=== PATIENT | male | born 1945 | race Caucasian/White ===

== ENCOUNTER 2017-11-23 07:25 | Emergency (ER) | payer OTHER ==
[~2017-11-23] VITALS: Ht 180.3 cm; Wt 81.2 kg
[2017-11-23 07:33] VITALS: TEMP 36.9; Ht 180.3 cm; Wt 81.2 kg
--- NOTE | 2017-11-23 08:10 | EMERGENCY ROOM VISIT NOTE ---
History Report prepared by Scar: Tristan Taveras Under the Supervision of: Dr. Dima Cortez D.O. First contact with patient: 07:47 Chief Complaint: ABDOMINAL PAIN Stated Complaint: LEFT SIDE BUMP - LEG Nursing Triage Summary: pt reports bump in left abd for 1 month. hurts when goes to bathroom. denies pain now"but when bump comes out hurts" pt reports he is not not sure hernia is History of Present Illness The patient is a 72 year old male who presents to the Emergency Room with complaints of intermittent mild abdominal pain that has been occurring for about 1-2 months. He is currently not in any pain at this time. The patient states that he has had a bulge to his left groin area that reduces whenever he pushes on it. After occurring this morning, he pushed on the area making his symptoms resolve. He denies any fevers, nausea, vomiting, back pain, abdominal pain, changes in her bowels, and abnormal urinary symptoms. Source of History: patient Onset: 1-2 months Position: abdomen (left groin) Symptom Intensity: mild Quality: ache Timing: intermittent, resolved Associated Symptoms: No fevers, No nausea, No vomiting, No abdominal pain, No back pain, No melena, No hematochezia, No diarrhea, No urinary symptoms Review of Systems See HPI for pertinent positives & negatives. A total of 10 systems reviewed and were otherwise negative. Past Medical & Surgical Medical Problems: (1) No Known Active Medical Problems Family History Omitted secondary to the patient's age. Social History Smoking Status: Never Smoker Smokeless Tobacco Use: No Drug Use: none Occupation Status: retired Current/Historical Medications No Active Prescriptions or Reported Meds Allergies Coded Allergies: No Known Allergies (Unverified , 11/23/17) Physical Exam Vital Signs Date Time Temp Pulse Resp B/P (MAP) Pulse Ox O2 Delivery O2 Flow Rate FiO2 11/23/17 08:19 90 16 185/88 96 11/23/17 07:33 36.9 87 18 197/111 96 Room Air Physical Exam CONSTITUTIONAL/VITAL SIGNS: Reviewed / noted above. GENERAL: Non-toxic in appearance. INTEGUMENTARY: Warm, dry, and [place]. HEAD: Normocephalic. EYES: without scleral icterus or trauma. ENT/OROPHARYNX: clear and moist. LYMPHADENOPATHY/NECK: Is supple without lymphadenopathy or meningismus. RESPIRATORY: Lungs clear and equal. CARDIOVASCULAR: Regular rate and rhythm. GI/ABDOMEN: Soft and nontender. No palpable hernias at this time. No organomegaly or pulsatile mass. No rebound or guarding. Normal bowel sounds. EXTREMITIES: Warm and well perfused. BACK: No CVA tenderness. NEUROLOGICAL: Intact without focal deficits. PSYCHIATRIC: normal affect. MUSCULOSKELETAL: Normally developed with good muscle tone. Medical Decision & Procedures ED Course 0747: Previous medical records were reviewed. The patient was evaluated in room A10. A complete history and physical examination was performed. Medical Decision Differential considered: pancreatitis, hepatitis, or acute cholecystitis, AAA, UTI, pyelonephritis, kidney stones, appendicitis, diverticulitis, shingles, bowel obstruction mesenteric ischemia, intussusception, hernia, testicular torsion. This is a 72-year-old male who presents to the emergency room with a chief complaint of intermittent swelling in the left groin area over the past month and a half to 2 months. The patient states that it occurred this morning and he was able to push it back in. He denies any complaints at this time. His exam was unremarkable for acute inguinal hernia. His clinical history is consistent with that of an intermittent reducible left inguinal hernia. The patient was referred to general surgery for further evaluation of this. He was told to return should he have any additional acute symptoms that do not resolve with reduction at home. Medication Reconcilliation Current Medication List: was personally reviewed by me Blood Pressure Screening Patient's blood pressure: Elevated blood pressure Blood pressure disposition: Referred to PCP Impression Primary Impression: Left inguinal hernia Scribe Attestation The scribe's documentation has been prepared under my direction and personally reviewed by me in its entirety. I confirm that the note above accurately reflects all work, treatment, procedures, and medical decision making performed by me. Departure Information Dispostion Home / Self-Care Prescriptions No Active Prescriptions or Reported Meds Referrals No Doctor, Assigned (PCP) Glendy Nguyễn MD Forms Call Back Authorization, HOME CARE DOCUMENTATION FORM, IMPORTANT VISIT INFORMATION Patient Instructions ED Hernia Inguinal, My [facility] Additional Instructions Call Dr. Nguyễn, surgeon, to get checked for inguinal hernia repair. Return for continuous pain, fevers or any other concerns.
[2017-11-23 08:19] VITALS: BP 185/88; PULSE 90; O2SAT 96
== END 2017-11-23 08:26 | disposition home or self-care (01) ==
LOC: C.EDB 07:27 → C.EDA 08:26
DX: K40.90 Unilateral inguinal hernia, without obstruction or gangrene, not specified as recurrent (principal)

== ENCOUNTER 2017-12-09 21:46 | Emergency (ER) | payer OTHER ==
[~2017-12-09] VITALS: Ht 182.9 cm; Wt 79.7 kg
[2017-12-09 21:51] VITALS: Ht 182.9 cm; Wt 79.7 kg
[2017-12-09] MEDS ORDERED: SODIUM CHLORIDE 0.9% 1000ML 1,000 ML IV STA (23:33)
--- NOTE | 2017-12-09 23:42 | EMERGENCY ROOM VISIT NOTE ---
History Report prepared by Scar: Tristan Taveras Under the Supervision of: Dr. Temi Jovel D.O. First contact with patient: 23:07 Chief Complaint: OTHER COMPLAINT Stated Complaint: HERNIA History of Present Illness The patient is a 72 year old male who presents to the Emergency Room with complaints of worsening sharp left suprapubic abdominal pain that occurred two days ago. He rates his pain a 9/10 in severity. He has a past medical history of an inguinal hernia in this location for the past two months. He has a followup appointment with Dr. Nguyễn on December 24 of this year. The patient's pain has been present for about 2 months when he was diagnosed with this hernia. However, over the past two days he has noticed that his pain is exacerbated with standing, exertion, and coughing. He is also experiencing nausea secondary to his pain. He denies any fevers, sore throat, chest pain, shortness of breath, vomiting, testicular pain, trouble with his bowels, or abnormal urinary symptoms. He notes that he had an upper respiratory infection two weeks ago. He was treated as an outpatient with antibiotics and states that he feels better in that regard. His notes that the patient has been having some pain with moving his bowels, but she believes that it is because of his hemorrhoid history. Source of History: patient Onset: 2 days ago Position: abdomen (left suprapubic) Symptom Intensity: 9/10 Quality: sharp Timing: worsening Modifying Factors (Worsening): exertion, other (Standing, and coughing) Associated Symptoms: + nausea, No fevers, No chills, No chest pain, No SOB, No vomiting, No melena, No hematochezia, No diarrhea, No urinary symptoms Review of Systems See HPI for pertinent positives & negatives. A total of 10 systems reviewed and were otherwise negative. Past Medical & Surgical Medical Problems: (1) No Known Active Medical Problems Family History Omitted secondary to the patient's age. Social History Smoking Status: Never Smoker Smokeless Tobacco Use: No Drug Use: none Marital Status: Housing Status: lives with significant other Occupation Status: retired Current/Historical Medications Scheduled Dicyclomine Hcl (Bentyl), 1 CAP PO TID Allergies Coded Allergies: No Known Allergies (Unverified , 11/23/17) Physical Exam Vital Signs Date Time Temp Pulse Resp B/P (MAP) Pulse Ox O2 Delivery O2 Flow Rate FiO2 12/10/17 04:56 64 18 140/78 96 12/10/17 03:52 37.6 83 16 161/93 96 Room Air 12/10/17 02:17 81 16 156/91 96 Room Air 12/10/17 01:09 78 18 163/95 95 Room Air 12/09/17 23:46 77 16 169/103 96 Room Air 12/09/17 21:51 36.7 85 18 171/109 96 Room Air Physical Exam GENERAL: alert, well appearing, well nourished, no distress, non-toxic EYE EXAM: normal conjunctiva, PERRL and EOM's grossly intact OROPHARYNX: no exudate, no erythema, lips, buccal mucosa, and tongue normal and mucous membranes are moist NECK: supple, no nuchal rigidity, no adenopathy, non-tender LUNGS: Clear to auscultation. Normal chest wall mechanics HEART: no murmurs, S1 normal and S2 normal ABDOMEN: abdomen soft, mild tenderness to the left inguinal area, normo-active bowel sounds, no masses, no rebound or guarding. No obvious hernia to the left inguinal area when supine. When standing, hernia like mass noted along the left suprapubic and inguinal region. : Circumcised. Bilaterally descended testicles. No testicular pain with palpation. No obvious hernia into the scrotum. BACK: Back is symmetrical on inspection and there is no deformity, no midline tenderness, no CVA tenderness. SKIN: no rashes and no bruising UPPER EXTREMITIES: upper extremities are grossly normal. LOWER EXTREMITIES: No pitting edema. NEURO EXAM: Normal sensorium, cranial nerves II-XII grossly intact, normal speech, no gross weakness of arms, no gross weakness of legs. Medical Decision & Procedures ER Provider Diagnostic Interpretation: Radiology results have been interpreted by the radiologist and reviewed by me. CT ABDOMEN & PELVIS With Contrast: Small fat-containing left inguinal hernia. No bowel involvement. No free air, free fluid. No bowel obstruction. Normal appendix. Right kidney is absent. Left renal low-density lesion, no hydronephrosis. 3 cm cystic structure in the right retroperitoneum just anterior to the right psoas muscle. Consider. Collection/seroma if there has been right nephrectomy, enteric duplication cyst, other lesion. Low-density lesions in the liver. There are 2 large lesions, approximately 7-8 centimeters. Other adjacent small subcentimeter lesion. Correlate with priors if available or consider follow-up to confirm benign cyst versus other lesion. Gallstone within otherwise normal-appearing gallbladder. Mild bibasilar atelectasis or airspace disease. Greater in the left lung base Radiologist: hBavesh Elizabeth M.D. Laboratory Results 12/09/17 22:37 Red Blood Count 4.94, Mean Corpuscular Volume 89.1, Mean Corpuscular Hemoglobin 30.4, Mean Corpuscular Hemoglobin Concent 34.1, Mean Platelet Volume 8.7, Neutrophils (%) (Auto) 74.5, Lymphocytes (%) (Auto) 10.7, Monocytes (%) (Auto) 14.6, Eosinophils (%) (Auto) 0.2, Basophils (%) (Auto) 0.0, Neutrophils # (Auto ) 3.27, Lymphocytes # (Auto) 0.47, Monocytes # (Auto) 0.64, Eosinophils # (Auto ) 0.01, Basophils # (Auto) 0.00 12/09/17 22:37 Test 12/09/17 22:37 12/09/17 23:51 White Blood Count 4.39 K/uL (4.8-10.8) Red Blood Count 4.94 M/uL (4.7-6.1) Hemoglobin 15.0 g/dL (14.0-18.0) Hematocrit 44.0 % (42-52) Mean Corpuscular Volume 89.1 fL (80-100) Mean Corpuscular Hemoglobin 30.4 pg (25-34) Mean Corpuscular Hemoglobin Concent 34.1 g/dl (32-36) Platelet Count 108 K/uL (130-400) Mean Platelet Volume 8.7 fL (7.4-10.4) Neutrophils (%) (Auto) 74.5 % Lymphocytes (%) (Auto) 10.7 % Monocytes (%) (Auto) 14.6 % Eosinophils (%) (Auto) 0.2 % Basophils (%) (Auto) 0.0 % Neutrophils # (Auto) 3.27 K/uL (1.4-6.5) Lymphocytes # (Auto) 0.47 K/uL (1.2-3.4) Monocytes # (Auto) 0.64 K/uL (0.11-0.59) Eosinophils # (Auto) 0.01 K/uL (0-0.5) Basophils # (Auto) 0.00 K/uL (0-0.2) RDW Standard Deviation 41.4 fL (36.4-46.3) RDW Coefficient of Variation 12.7 % (11.5-14.5) Immature Granulocyte % (Auto) 0.0 % Immature Granulocyte # (Auto) 0.00 K/uL (0.00-0.02) Prothrombin Time 11.0 SECONDS (9.0-12.0) Prothromb Time International Ratio 1.0 (0.9-1.1) Anion Gap 7.0 mmol/L (3-11) Est Creatinine Clear Calc Drug Dose 73.6 ml/min Estimated GFR () 86.3 Estimated GFR (Non- 74.5 BUN/Creatinine Ratio 15.2 (10-20) Calcium Level 7.9 mg/dl (8.5-10.1) Total Bilirubin 1.0 mg/dl (0.2-1) Aspartate Amino Transf (AST/SGOT) 21 U/L (15-37) Alanine Aminotransferase (ALT/SGPT) 25 U/L (12-78) Alkaline Phosphatase 61 U/L (45-117) Total Protein 6.7 gm/dl (6.4-8.2) Albumin 3.1 gm/dl (3.4-5.0) Globulin 3.6 gm/dl (2.5-4.0) Albumin/Globulin Ratio 0.9 (0.9-2) Lipase 166 U/L (73-393) Bedside Lactic Acid Venous 0.77 mmol/L (0.90-1.70) Laboratory results per my review. Medications Administered Medications (Trade) Dose Ordered Sig/Xander Route Start Time Stop Time Status Last Admin Dose Admin Sodium Chloride 1,000 ml @ 250 mls/hr Q4H STAT IV 12/09/17 23:33 12/10/17 03:32 DC 12/09/17 23:50 250 MLS/HR Acetaminophen (Tylenol Tab) 650 mg NOW STAT PO 12/10/17 03:41 12/10/17 03:42 DC 12/10/17 03:50 650 MG Dicyclomine HCl (Bentyl Cap) 10 mg NOW ONCE PO 12/10/17 03:45 12/10/17 03:46 DC 12/10/17 03:50 10 MG ED Course 2307: The patient was evaluated in room B3. A complete history and physical exam was performed. 2333: Ordered Sodium Chloride 1000 ml @ 250 mls/hr IV 0341: Ordered Tylenol Tab 650 mg PO 0345: Ordered Bentyl Cap 10 mg PO 0424: The patient states that he would like emergency surgery to fix his hernia. However, I do not feel that this is necessary at this time. He will be discharged with a plan to follow up with Dr. Nguyễn. 0445: Upon reevaluation, the patient is feeling better. I discussed the findings and the treatment plan with the patient. He verbalizes agreement and understanding. He was discharged home. Medical Decision Differential diagnosis: Etiologies such as appendicitis, diverticulitis, PUD, biliary pathology, UTI, pancreatitis, obstruction, mesenteric ischemia, aortic pathology, infections, inflammatory bowel disease, renal colic, as well as others were entertained. Pt well appearing despite complaints which have been going on for months. Pt already has scheduled appt with general surgery. VS stable throughout. No evidence of strangulation/incarceration, no evidence of other acute GI pathology. No evidence of Gu pathology. Pt did not provide a urine specimen but had no urinary complaints. Pt ambulatory here and very anxious about enlarged area that appears with position change and walking. I assured him this was not a surgical emergency and that he should keep his appointment with the surgeon. Pt tolerated po while in the er. I do not suspect occult infectious etiology. Discussed sx to watch/return for, he and family verbalized understanding and were agreeable with plan. Medication Reconcilliation Current Medication List: was personally reviewed by me Blood Pressure Screening Patient's blood pressure: Elevated blood pressure Blood pressure disposition: Elevated BP felt to be situational Impression Primary Impression: Left inguinal hernia Additional Impression: Hypokalemia Scribe Attestation The scribe's documentation has been prepared under my direction and personally reviewed by me in its entirety. I confirm that the note above accurately reflects all work, treatment, procedures, and medical decision making performed by me. Departure Information Dispostion Home / Self-Care Prescriptions Dicyclomine Hcl (BENTYL) 10 Mg Cap 1 CAP PO TID, #15 CAP 1 Refill Prov: Temi Jovel, DO 12/10/17 Referrals No Doctor, Assigned (PCP) Forms HOME CARE DOCUMENTATION FORM, IMPORTANT VISIT INFORMATION, WORK / SCHOOL INSTRUCTIONS Patient Instructions My [facility] Additional Instructions Please keep your appointment with Dr. Nguyễn, or call the office and see if there is an earlier appointment. You may use Tylenol as needed for pain, or the additional medication as written. Please continue to monitor symptoms for any changes. If you have any worsening pain, feel the area of the hernia is getting larger, noticed a change in your bowel movements, have difficulty urinating or noticed blood in your urine, develop fevers or chills, or you have any other new or concerning symptoms, please return to the emergency room. Problem Qualifiers
[2017-12-10 00:01] LABS: EOS % 0.2 %; EOS ABS # 0.01 K/uL (0-0.5); LYMPH % 10.7 %; LYMPH ABS # 0.47 K/uL (1.2-3.4); MEAN CELL VOLUME 89.1 fL (80-100); MEAN CORPUSCULAR HEMOGLOBIN 30.4 pg (25-34); MEAN CORPUSCULAR HGB CONC 34.1 g/dl (32-36); MEAN PLATELET VOLUME 8.7 fL (7.4-10.4); MONO % 14.6 %; MONO ABS # 0.64 K/uL (0.11-0.59); NEUT % 74.5 %; NEUT ABS # 3.27 K/uL (1.4-6.5); PLATELET COUNT 108 K/uL (130-400); RED CELL DISTRIBUTION WIDTH CV 12.7 % (11.5-14.5); RED CELL DISTRIBUTION WIDTH SD 41.4 fL (36.4-46.3); WHITE BLOOD COUNT 4.39 K/uL (4.8-10.8)
[2017-12-10 00:10] LABS: ALBUMIN 3.1 gm/dl (3.4-5.0); CALCIUM 7.9 mg/dl (8.5-10.1); CREATININE 1.01 mg/dl (0.60-1.40); POTASSIUM 3.2 mmol/L (3.5-5.1)
[2017-12-10 00:13] LABS: TOTAL PROTEIN 6.7 gm/dl (6.4-8.2)
[2017-12-10] MEDS ORDERED: OPTIRAY 320 IV PRN (00:30)
[2017-12-10] MEDS ORDERED: ACETAMINOPHEN 325 MG TAB PO STA (03:41)
[2017-12-10] MEDS ORDERED: DICYCLOMINE HCL 10 MG CAP PO ONE (03:45)
[2017-12-10 03:52] VITALS: TEMP 37.6
[2017-12-10] MEDS ORDERED: DICY10CA55 PO (04:41)
[2017-12-10 04:56] VITALS: BP 140/78; PULSE 64; O2SAT 96
--- NOTE | 2017-12-10 06:38 | DIAGNOSTIC IMAGING REPORT ---
ABD/PELVIS IV AND ORAL CONT CT DOSE: 386.72 mGy.cm HISTORY: Pain. Nausea. FINDINGS: Bibasilar atelectatic/infiltrative change. Multiple hepatic cysts. Gallstone within the gallbladder neck with a slight degree of gallbladder wall edema. Prior right nephrectomy. 3 cm postprocedural seroma within the right paravertebral line transaxial image 47. Bowel pattern within the abdomen and pelvis is nonobstructive. Slight wall thickening of a loop of distal small bowel transaxial image 71. Bladder is midline. Small amount of free fluid within the pelvic cul-de-sac. Small fat-containing left inguinal hernia. No evidence for bowel containment. TECHNIQUE: Multiaxial CT images of the abdomen and pelvis were performed following the use of intravenous and oral contrast. A dose lowering technique was utilized adhering to the principles of ALARA. COMPARISON STUDY: None. IMPRESSION: 1. Fat-containing left inguinal hernia. 2. Short segment thickened wall of distal small bowel image 71. Technical artifact versus inflammatory bowel change is considered. 3. Prior right fracture. 3 cm residual seroma at the operative site. 4. Several hepatic cysts. 5. Basilar atelectatic and/or infiltrative change. The above report was generated using voice recognition software. It may contain grammatical, syntax or spelling errors. Electronically signed by: Francisco Andrews M.D. 12/10/2017 6:37 AM Dictated Date/Time: 12/10/2017 6:33 AM
== END 2017-12-10 04:58 | disposition home or self-care (01) ==
LOC: C.EDB 21:47
DX: K40.90 Unilateral inguinal hernia, without obstruction or gangrene, not specified as recurrent (principal); E87.6 Hypokalemia

== ENCOUNTER 2021-10-25 06:52 | Inpatient (IN) ==
[2021-10-25] MEDS ORDERED: ONDANSETRON INJ 2 MG/ML 2 ML VIAL IV STA (07:10)
[2021-10-25] MEDS ORDERED: CEFEPIME 2,000 MG/20 ML VIAL IV STA (07:11)
[2021-10-25] MEDS ORDERED: SODIUM CHLORIDE 0.9% 1000ML 1,000 ML IV SCH ×2 (07:15→15:59)
[2021-10-25] MEDS ORDERED: SODIUM CHLORIDE 0.9% 1000ML 1,000 ML IV ONE (07:34)
--- NOTE | 2021-10-25 07:46 | Emergency Department Note ---
Impression & Plan Hypotension, MARRY (acute kidney injury), Weakness, COVID-19, Atrial fibrillation ED Provider Note NAME: REJI DISLA AGE: 76 SEX: M : 1945 ARRIVES VIA: Ambulance INFORMANT: [Patient][asl interpreter] ED PROVIDER(S): [Vitaliy Paniagua MD] CHIEF COMPLAINT: Illness HISTORY OF PRESENT ILLNESS: The patient is a 76-year-old Syrian-speaking male presents to the ER with c omplaints of an illness. Nursing staff could not really determine what his complaints were. The patient did tell me he has no pain. He feels weak. I did use the asl interpreter service and, the patient refused to talk to the asl interpreter. He felt he was too weak to speak and just wanted help. Despite multiple attempts to try and get some kind of history, he refused to speak to me further or to the asl interpreter. REVIEW OF SYSTEMS: Unobtainable given the patient's refusal to speak. PMHx/PSHx: See Below SOCIAL HISTORY: See Below. PHYSICAL EXAM: GENERAL: Patient is in no acute distress. HEENT: No acute trauma, normocephalic atraumatic, mucous membranes quite dry, no nasal congestion, no scleral icterus. NECK: No stridor, no adenopathy, no meningismus, trachea is midline. LUNGS: Clear to auscultation bilaterally, no wheeze, no rhonchi, breath sounds equal. HEART: Without murmurs gallops or rubs, regular rate and rhythm. ABDOMEN: Soft, nontender, bowel sounds positive, no hernias, no peritonitis. EXTREMITIES: No cyanosis or edema, full range of motion of all the joints wi thout pain or difficulty, no signs for acute trauma. NEUROLOGIC: Awake alert, no acute motor or sensory deficits, no focal weakness. SKIN: No rash, no jaundice, no diaphoresis. Groin: No erythema. Circumcised. DIFFERENTIAL DIAGNOSIS: Infection, dehydration, metabolic abnormality, hypo/hyperglycemia, COVID-19, influenza, electrolyte disturbance, anemia, hypoxia, cardiac sources, intracerebral event, toxicologic issues, stroke, TIA, as well as other pathologies. EMERGENCY DEPARTMENT COURSE/PROCEDURES: ECG: Indication was weakness. The ECG shows atrial fibrillation with a rate of 84. There is no ST elevation, no PVCs. The QTc is 446. Compared to an ECG from 10 June 2021, A. fib now appears present. Continuous Cardiac Monitoring: An order was placed for continuous cardiac monitoring. The monitor shows a rate of 75 with atrial fibrillation. Critical Care Note: I have personally spent 51 minutes of critical care time in the direct management of this patient. This includes bedside care, interpretation of diagnostic studies, and testing, discussion with consultants, patient, and family members, and other required patient management activities. This 51 minutes is in excess of all separately billable procedures. MEDICAL DECISION MAKING: There is no leukocytosis or concerning anemia. There is a normal platelet count. There is some acute kidney injury with an elevation to the creatinine. CO2 was a bit low. Lactic acid level was not elevated making severe sepsis less likely. No concerning liver enzyme elevation. TSH was within normal parameters. ECG shows atrial fibrillation which appears new. No acute ischemic change. Cardiac enzyme testing x1 is slightly elevated which could indicate some cardiac strain. Covid testing returned positive. Influenza and RSV testing returned negative. Chest film does show some bilateral parenchymal congestion consistent with potential viral pneumonia. Abdominal and pelvis CT does not show any urinary obstruction. The patient only has 1 kidney. The patient presented weak and hypotensive. He was reluctant to talk with me or to the Syrian asl interpreter. He was given 2 L of IV saline for hydration. He received IV Zofran for nausea. He was given IV Decadron when the diagnosis of Covid was made. He was given IV cefepime as empiric antibiotic coverage. He received albuterol via [facility]. Patient looks to be improving. He does require a hospital stay. He has Covid pneumonia, he has acute kidney injury, he presents hypotensive. He appears to be in a new onset A. fib. I spoke with the patient and disease case manager rn. The on-call hospitalist was consulted. The patient is aware of his findings. Past Med/Surg History Medical History Chronic rhinitis Depression HTN (hypertension) Solitary kidney Surgical History (Updated 10/25/21 @ 12:09 by Raquel Tijerina PA-C) History of hernia repair Family History (Updated 10/25/21 @ 12:26 by Raquel Tijerina PA-C) Other Unknown family medical history Social History Smoking Status: Never smoker Hx Alcohol Use: No Hx Substance Use: No Preferred Language: Syrian marital status: Single Current Living Situation: Alone Feels Safe at Home: Yes Allergies Allergies Allergy/AdvReac Type Severity Reaction Status Date / Time No Known Allergies Allergy Mild Unverified 06/20/21 20:58 Home Meds Home Medications Medication Instructions Recorded Confirmed amlodipine 10 mg tablet (Norvasc) 10 mg PO HS 06/10/21 10/25/21 lisinopril 40 mg tablet 40 mg PO DAILY@1800 06/20/21 10/25/21 sertraline 50 mg tablet 50 mg PO QAM 06/20/21 10/25/21 Results & Data (ED) Vital Signs Vital Signs - 24 hr 10/25/21 07:01 10/25/21 07:21 10/25/21 07:24 Temperature 36.4 C L Temperature Source Oral Pulse Rate 75 75 78 Pulse Rate from SpO2 Sensor 79 Pulse Rhythm Regular Respiratory Rate 22 22 20 Blood Pressure 86/57 L Blood Pressure Mean 66 Pulse Oximetry 91 92 91 Oxygen Delivery Method Room Air Nasal Cannula Oxygen Flow Rate 4 Sepsis Recent Fever Within 48 Hours No Sepsis New/Unexplained Change in Mental Status N/A Sepsis Action Taken by Nursing No Action Required 10/25/21 07:30 10/25/21 08:00 10/25/21 08:30 Temperature Temperature Source Pulse Rate 83 108 H 74 Pulse Rate from SpO2 Sensor 74 70 Pulse Rhythm Respiratory Rate 15 24 16 Blood Pressure 96/67 L 122/80 94/73 L Blood Pressure Mean 76 94 80 Pulse Oximetry 93 93 Oxygen Delivery Method Nasal Cannula Nasal Cannula Nasal Cannula Oxygen Flow Rate 4 4 4 Sepsis Recent Fever Within 48 Hours Sepsis New/Unexplained Change in Mental Status Sepsis Action Taken by Nursing 10/25/21 09:00 10/25/21 09:30 10/25/21 10:00 Temperature Temperature Source Pulse Rate 73 77 86 Pulse Rate from SpO2 Sensor 72 75 90 Pulse Rhythm Respiratory Rate 11 L 18 34 H Blood Pressure 113/76 118/86 Blood Pressure Mean 88 96 Pulse Oximetry 96 98 97 Oxygen Delivery Method Nasal Cannula Nasal Cannula Oxygen Flow Rate 4 4 Sepsis Recent Fever Within 48 Hours Sepsis New/Unexplained Change in Mental Status Sepsis Action Taken by Nursing 10/25/21 10:30 10/25/21 11:00 10/25/21 11:30 Temperature Temperature Source Pulse Rate 68 88 88 Pulse Rate from SpO2 Sensor 95 H Pulse Rhythm Respiratory Rate 15 17 20 Blood Pressure 115/72 112/74 Blood Pressure Mean 86 86 Pulse Oximetry 97 94 94 Oxygen Delivery Method Oxygen Flow Rate Sepsis Recent Fever Within 48 Hours Sepsis New/Unexplained Change in Mental Status Sepsis Action Taken by Nursing 10/25/21 12:00 10/25/21 12:30 10/25/21 13:00 Temperature Temperature Source Pulse Rate 108 H 92 H 141 H Pulse Rate from SpO2 Sensor 95 H 80 86 Pulse Rhythm Respiratory Rate 27 H 19 17 Blood Pressure 110/84 Blood Pressure Mean 92 Pulse Oximetry 96 94 94 Oxygen Delivery Method Oxygen Flow Rate Sepsis Recent Fever Within 48 Hours Sepsis New/Unexplained Change in Mental Status Sepsis Action Taken by Nursing 10/25/21 13:30 10/25/21 14:00 Temperature Temperature Source Pulse Rate 88 Pulse Rate from SpO2 Sensor 81 Pulse Rhythm Respiratory Rate 31 H 19 Blood Pressure 123/78 Blood Pressure Mean 93 Pulse Oximetry 94 Oxygen Delivery Method Oxygen Flow Rate Sepsis Recent Fever Within 48 Hours Sepsis New/Unexplained Change in Mental Status Sepsis Action Taken by Group Home Medications Current Medication List: was personally reviewed by me Laboratory Data Attestation: I reviewed the patient's lab results. Result diagrams: 10/25/21 08:07 10/25/21 08:07 Lab Results 10/25/21 10/25/21 10/25/21 Range/Units 08:07 08:07 08:14 WBC 5.49 (4.8-10.8) K/uL RBC 5.12 (4.7-6.1) M/uL Hgb 16.4 (14.0-18.0) g/dL Hct 45.3 (42-52) % MCV 88.5 (80-100) fL MCH 32.0 (25-34) pg MCHC 36.2 H (32-36) g/dL RDW Std Deviation 41.6 (36.4-46.3) fL RDW Coeff of Sameera 12.8 (11.5-14.5) % Plt Count 132 (130-400) K/uL MPV 9.1 (7.4-10.4) fL Immature Gran % (Auto) 0.4 % Neut % (Auto) 73.0 % Lymph % (Auto) 13.1 % Harmon % (Auto) 13.3 % Eos % (Auto) 0.0 % Baso % (Auto) 0.2 % Neut # (Auto) 4.01 (1.4-6.5) K/uL Lymph # (Auto) 0.72 L (1.2-3.4) K/uL Harmon # (Auto) 0.73 H (0.11-0.59) K/uL Eos # (Auto) 0.00 (0-0.5) K/uL Baso # (Auto) 0.01 (0-0.2) K/uL Immature Gran # (Auto) 0.02 (0.00-0.02) K/uL Sodium 139 (136-145) mmol/L Potassium 3.5 (3.5-5.1) mmol/L Chloride 109 H (98-107) mmol/L Carbon Dioxide 16 L (21-32) mmol/L Anion Gap 14.0 H (3-11) BUN 48 H (7-18) mg/dl Creatinine 2.27 H (0.6-1.4) mg/dl Est Cr Clr Drug Dosing Not Reportable Est GFR ( Amer) 31.5 ml/min Est GFR (Non-Af Amer) 27.2 ml/min BUN/Creatinine Ratio 21.2 H (10-20) Glucose 180 H (70-99) mg/dl Lactate 1.9 (0.4-2.0) mmol/L Calcium 8.5 (8.5-10.1) mg/dl Magnesium 2.5 H (1.8-2.4) mg/dl Total Bilirubin 1.0 (0.2-1) mg/dl AST 24 (15-37) U/L ALT 22 (12-78) Alkaline Phosphatase 49 (45-117) U/L Troponin I 0.097 H* (0-0.045) ng/ml Total Protein 7.1 (6.4-8.2) gm/dl Albumin 2.9 L (3.4-5.0) gm/dl Globulin 4.2 H (2.5-4.0) gm/dl Albumin/Globulin Ratio 0.7 L (0.9-2) Procalcitonin (0-0.5) ng/ml TSH 0.621 (0.300-4.500) uIu/ml SARS-CoV-2 (PCR) (Negative) Influenza Type A (PCR) (Neg) Influenza Type B (PCR) (Neg) RSV (RT-PCR) (Neg) 10/25/21 10/25/21 Range/Units 08:15 08:30 WBC (4.8-10.8) K/uL RBC (4.7-6.1) M/uL Hgb (14.0-18.0) g/dL Hct (42-52) % MCV (80-100) fL MCH (25-34) pg MCHC (32-36) g/dL RDW Std Deviation (36.4-46.3) fL RDW Coeff of Sameera (11.5-14.5) % Plt Count (130-400) K/uL MPV (7.4-10.4) fL Immature Gran % (Auto) % Neut % (Auto) % Lymph % (Auto) % Harmon % (Auto) % Eos % (Auto) % Baso % (Auto) % Neut # (Auto) (1.4-6.5) K/uL Lymph # (Auto) (1.2-3.4) K/uL Harmon # (Auto) (0.11-0.59) K/uL Eos # (Auto) (0-0.5) K/uL Baso # (Auto) (0-0.2) K/uL Immature Gran # (Auto) (0.00-0.02) K/uL Sodium (136-145) mmol/L Potassium (3.5-5.1) mmol/L Chloride (98-107) mmol/L Carbon Dioxide (21-32) mmol/L Anion Gap (3-11) BUN (7-18) mg/dl Creatinine (0.6-1.4) mg/dl Est Cr Clr Drug Dosing Est GFR ( Amer) ml/min Est GFR (Non-Af Amer) ml/min BUN/Creatinine Ratio (10-20) Glucose (70-99) mg/dl Lactate (0.4-2.0) mmol/L Calcium (8.5-10.1) mg/dl Magnesium (1.8-2.4) mg/dl Total Bilirubin (0.2-1) mg/dl AST (15-37) U/L ALT (12-78) Alkaline Phosphatase (45-117) U/L Troponin I (0-0.045) ng/ml Total Protein (6.4-8.2) gm/dl Albumin (3.4-5.0) gm/dl Globulin (2.5-4.0) gm/dl Albumin/Globulin Ratio (0.9-2) Procalcitonin 3.69 H (0-0.5) ng/ml TSH (0.300-4.500) uIu/ml SARS-CoV-2 (PCR) POSITIVE A* (Negative) Influenza Type A (PCR) Negative (Neg) Influenza Type B (PCR) Negative (Neg) RSV (RT-PCR) Negative (Neg) Administered Medications Heparin Sodium/Dextrose (Heparin Sodium/Dextrose) 25,000 units in 500 mls @ 21 mls/hr IV .[id number] BRIAN; Protocol Stop: 11/24/21 13:29 Last Admin: 10/25/21 13:59 Dose: 1,050 units/hr, 21 mls/hr Documented by: [id number] Cosigned by: [id number] Discontinued Medications Albuterol (Albut/Ipratrop 3mg/0.5mg Neb 3 Ml Vial) 3 ml NEB NOW STA Stop: 10/25/21 10:03 Last Admin: 10/25/21 10:21 Dose: 3 ml Documented by: [id number] Dexamethasone Sodium Phosphate (DexamethasonePf 10 Mg/Ml Vial) 6 mg IV NOW ONE Stop: 10/25/21 10:03 Last Admin: 10/25/21 10:21 Dose: 6 mg Documented by: [id number] Sodium Chloride (Nss 1000ml) 1,000 mls @ 999 mls/hr IV .Q1H1M BRIAN Stop: 10/25/21 08:15 Last Infusion: 10/25/21 09:54 Dose: 0 mls/hr Documented by: [id number] Admin: 10/25/21 08:29 Dose: 999 mls/hr Documented by: [id number] Cefepime HCl (Maxipime) 2,000 mg in 20 mls @ 5 mls/min IV NOW STA; Protocol Stop: 10/25/21 07:14 Last Admin: 10/25/21 08:29 Dose: 5 mls/min Documented by: [id number] Sodium Chloride (Nss 1000ml) 1,000 mls @ 999 mls/hr IV .Q1H1M ONE Stop: 10/25/21 08:34 Last Infusion: 10/25/21 09:54 Dose: 0 mls/hr Documented by: [id number] Admin: 10/25/21 08:27 Dose: 999 mls/hr Documented by: [id number] Ondansetron HCl (Ondansetron Inj 2 Mg/Ml 2 Ml Vial) 4 mg IV NOW STA Stop: 10/25/21 07:11 Last Admin: 10/25/21 08:29 Dose: 4 mg Documented by: [id number] Imaging Data Radiologist's Impression: Chest X-Ray 10/25/21 07:10 XR chest 1V portable HISTORY: weakness COMPARISON: None. FINDINGS: The heart is borderline enlarged. Interstitial thickening at the lung bases, left greater the right. No focal lung consolidations identified. No evidence for pulmonary edema. There is a mildly tortuous thoracic aorta. IMPRESSION: Interstitial thickening at the lung bases, left greater than right. This is nonspecific and may be due to a chronic interstitial process or an interstitial pneumonitis. ACT 112: Negative or not required by law. Electronically signed by: Krishan Mireles M.D. 10/25/2021 8:11 AM Abdomen/Pelvis CT 10/25/21 09:12 CT OF THE ABDOMEN AND PELVIS WITHOUT CONTRAST CLINICAL HISTORY: Renal failure. Evaluate for hydronephrosis. COMPARISON STUDY: CT of the abdomen and pelvis December 10, 2017. TECHNIQUE: Axial images of the abdomen and pelvis were obtained without IV contrast. Images were reviewed in the axial, sagittal, and coronal planes. Automated exposure control was utilized for the study. A dose lowering technique was utilized adhering to the principles of ALARA. FINDINGS: Mild cardiomegaly is noted. Note is made of interlobular septal thickening within the left lower lobe. There are moderate left lower lobe and mild right lower lobe ground glass opacities. There is minimal groundglass opacity within the lingula and right middle lobe. Evaluation of the abdomen and pelvis is suboptimal on this unenhanced examination. No pneumatosis, free air or portal venous gas is present. Water attenuation hepatic lesions measure up to 6.6 cm. These were shown to represent cysts on prior contrast enhanced CT. There is no biliary or pancreatic ductal dilatation. Gallstone within the gallbladder is noted. There is no evidence for acute cholecystitis. Unenhanced images of the spleen, adrenal glands and pancreas are unremarkable. Water attenuation left renal lesion was shown to reflect a cyst on prior contrast enhanced exam. There is no left hydronephrosis. There is trace left perinephric fluid. No urinary calculi are identified. Mild enlargement of the prostate is noted. Right kidney is absent. There is no evidence for a bowel obstruction. Sigmoid diverticulosis is noted without evidence for acute diverticulitis. There is no lymphadenopathy. No acute fracture or suspicious lesion is identified within visualized skeletal structures. IMPRESSION: 1. No left hydronephrosis. No urinary calculi. Absent right kidney. Mildly enlarged prostate. 2. Ground glass opacities within the lower lungs with interlobular septal thickening within the left lower lobe. The findings may reflect pulmonary edema or an infectious process. 3. No bowel obstruction. 4. Colonic diverticulosis without evidence for acute diverticulitis. 5. Cholelithiasis. ACT 112: Negative or not required by law. Electronically signed by: Neel Morfin M.D. 10/25/2021 10:08 AM Discharge Plan Visit Data Chief Complaint: Illness Stated Complaint: UNKNOWN/SICK ED Provider: Vitaliy Paniagua Discharge Problem: Hypotension, MARRY (acute kidney injury), Weakness, COVID-19, Atrial fibrillation Patient Disposition: Admitted As Inpatient Condition: Fair Forms Stand Alone Forms: My [facility] [employer] Prescriptions Prescriptions: No Action amlodipine [Norvasc] 10 mg tablet 10 mg PO HS RF: 0 lisinopril 40 mg tablet 40 mg PO DAILY@1800 RF: 0 sertraline 50 mg tablet 50 mg PO QAM RF: 0 Referrals Referrals: Pasquale Trujillo PA-C [Primary Care Provider] -
--- NOTE | 2021-10-25 08:12 | XRay Report ---
XR chest 1V portable HISTORY: weakness COMPARISON: None. FINDINGS: The heart is borderline enlarged. Interstitial thickening at the lung bases, left greater t he right. No focal lung consolidations identified. No evidence for pulmonary edema. There is a mildly tortuous thoracic aorta. IMPRESSION: Interstitial thickening at the lung bases, left greater than right. This is nonspecific and may be du e to a chronic interstitial process or an interstitial pneumonitis. ACT 112: Negative or not required by law. Electronically signed by: Krishan Mireles M.D. 10/25/2021 8:11 AM
[2021-10-25 08:35] LABS: Hematocrit (blood only) 45.3 % (42-52); Hemoglobin 16.4 g/dL (14.0-18.0); Mean Corpuscular Hgb Conc 36.2 g/dL (32-36); Mean Corpuscular Volume 88.5 fL (80-100); Mean Platelet Volume 9.1 fL (7.4-10.4); Platelet Count 132 K/uL (130-400); RDW Coefficient of Variation 12.8 % (11.5-14.5); RDW Standard Deviation 41.6 fL (36.4-46.3); Red Blood Count 5.12 M/uL (4.7-6.1); White Blood Count 5.49 K/uL (4.8-10.8)
[2021-10-25 08:51] LABS: Basophils # (auto) 0.01 K/uL (0-0.2); Basophils % (auto) 0.2 %; Immature Granulocytes # (auto) 0.02 K/uL (0.00-0.02); Immature Granulocytes % (auto) 0.4 %; Lymphocytes # (auto) 0.72 K/uL (1.2-3.4); Lymphocytes % (auto) 13.1 %; Monocytes # (auto) 0.73 K/uL (0.11-0.59); Monocytes % (auto) 13.3 %; Neutrophils # (auto) 4.01 K/uL (1.4-6.5)
[2021-10-25 08:54] LABS: Alanine Aminotransferase 22 (12-78); Albumin Level 2.9 gm/dl (3.4-5.0); Aspartate Aminotransferase 24 U/L (15-37); BUN Creatinine Ratio 21.2 (10-20); Blood Urea Nitrogen 48 mg/dl (7-18); Calcium 8.5 mg/dl (8.5-10.1); Carbon Dioxide 16 mmol/L (21-32); Chloride 109 mmol/L (98-107); Est GFR (African American) 31.5 ml/min; Est GFR (Non-African American) 27.2 ml/min; Glucose 180 mg/dl (70-99); Magnesium 2.5 mg/dl (1.8-2.4); Potassium 3.5 mmol/L (3.5-5.1); Sodium 139 mmol/L (136-145)
[2021-10-25 09:07] LABS: Albumin Globulin Ratio 0.7 (0.9-2); Alkaline Phosphatase 49 U/L (45-117); Globulin 4.2 gm/dl (2.5-4.0); Thyroid Stimulating Hormone 0.621 uIu/ml (0.300-4.500); Total Protein 7.1 gm/dl (6.4-8.2); Troponin I 0.097 ng/ml (0-0.045)
[2021-10-25 09:31] LABS: Influenza A virus by PCR Negative (Neg); Influenza B virus by PCR Negative (Neg); RSV by PCR Negative (Neg)
[2021-10-25] MEDS ORDERED: ALBUT/IPRATROP 3MG/0.5MG NEB 3 ML VIAL NEB STA (10:02)
[2021-10-25] MEDS ORDERED: dexAMETHasone**PF** 10 MG/ML VIAL IV ONE (10:02)
--- NOTE | 2021-10-25 10:09 | CT Scan Report ---
CT OF THE ABDOMEN AND PELVIS WITHOUT CONTRAST CLINICAL HISTORY: Renal failure. Evaluate for hydronephrosis. COMPARISON STUDY: CT of the abdomen and pelvis December 10, 2017. TECHNIQUE: Axial images of the abdomen and pelvis were obtained without IV contrast. Images were revi ewed in the axial, sagittal, and coronal planes. Automated exposure control was utilized for the shemar dy. A dose lowering technique was utilized adhering to the principles of ALARA. FINDINGS: Mild cardiomegaly is noted. Note is made of interlobular septal thickening within the left lower lobe. There are moderate left lower lobe and mild right lower lobe ground glass opacities. Ther e is minimal groundglass opacity within the lingula and right middle lobe. Evaluation of the abdomen and pelvis is suboptimal on this unenhanced examination. No pneumatosis, fr ee air or portal venous gas is present. Water attenuation hepatic lesions measure up to 6.6 cm. These were shown to represent cysts on prior contrast enhanced CT. There is no biliary or pancreatic ducta l dilatation. Gallstone within the gallbladder is noted. There is no evidence for acute cholecystitis . Unenhanced images of the spleen, adrenal glands and pancreas are unremarkable. Water attenuation le ft renal lesion was shown to reflect a cyst on prior contrast enhanced exam. There is no left hydrone phrosis. There is trace left perinephric fluid. No urinary calculi are identified. Mild enlargement o f the prostate is noted. Right kidney is absent. There is no evidence for a bowel obstruction. Sigmoi d diverticulosis is noted without evidence for acute diverticulitis. There is no lymphadenopathy. No acute fracture or suspicious lesion is identified within visualized skeletal structures. IMPRESSION: 1. No left hydronephrosis. No urinary calculi. Absent right kidney. Mildly enlarged prostate. 2. Ground glass opacities within the lower lungs with interlobular septal thickening within the left lower lobe. The findings may reflect pulmonary edema or an infectious process. 3. No bowel obstruction. 4. Colonic diverticulosis without evidence for acute diverticulitis. 5. Cholelithiasis. ACT 112: Negative or not required by law. Electronically signed by: Neel Morfin M.D. 10/25/2021 10:08 AM
--- NOTE | 2021-10-25 11:54 | History & Physical Report ---
Date of Service October 25, 2021 Assessment & Plan (1) SIRS (systemic inflammatory response syndrome): (2) Hypoxia: (3) Pneumonia due to COVID-19 virus: Plan: Pt initially met SIRS criteria on admission 2/2 to hypotension and tachycardia This resolved with fluid resuscitation 2 L. Blood cultures were obtained in ED. He received 1 dose of IV cefepime Lactic acid WNL, afebrile and WBC WNL Likely in setting of hypovolemia and MARRY COVID -19 with GGO consistent with viral PNA Hypoxia admit to tele IV Dexamethasone 6mg daily He does not meet criteria for remdesivir given renal fxn procalcitonin elevated - will start empiric IV rocephin and oral doxycycline titrate supplemental oxygen as needed pulmonary toilet with nebs, spirometry and flutter valve he is not vaccinated per daughter (4) MARRY (acute kidney injury): Plan: CT a/p: No left hydronephrosis. No urinary calculi. Absent right kidney. Mildly enlarged prostate. 2. Ground glass opacities within the lower lungs with interlobular septal thickening within the left lower lobe. The findings may reflect pulmonary edema or an infectious process.3. No bowel obstruction. 4. Colonic diverticulosis without evidence for acute diverticulitis. 5. Cholelithiasis. likely in setting of pre renal/dehydration due to poor po intake received 2L of IVF in ED continue 80cc/hr x 1 L repeat bmp at 20:00 (5) Elevated troponin: Plan: ecg w/o st t wave change, reading on admission was afib denies chest pain cycle trops x 2, may be in setting of demand ischemia due to afib/marry (6) New onset a-fib: Plan: no prior hx ecg on admission and repeat reveal afib [id number] (age, hx of HTN) currently rate controlled consult cardiology will initiate IV heparin, obtain echo prn IV lopressor for tachycardia > 120 (7) HTN (hypertension): Plan: hold amlodipine and lisinopril due to hypotensive on arrival monitor (8) Depression: Plan: continue zoloft Plan: DVT ppx: SQ Heparin Q8h 2/2 to renal function Dispo: med tele FULL CODE PCP: Pasquale Trujillo PA-C Discussed with daughter, Vivian Mcguire, who was unaware father was in ER. She appreciated the updates and confirmed FULL Code status. She wishes to be updated daily Pt is Guamanian Speaking and is refusing ipad health safety instructor. Wishes to only speak in [place]ong[place] despite it being broken difficult to understand. He is A&O x 3, but hx unreliable given communication barrier and lack of cooperation with health safety instructor. Discussed this with family as well. Pt was seen and examined in collaboration with Dr. Galan, please see addendum The chart was completed utilizing [employer] Speech voice recognition software. Grammatical errors, random word insertions, pronoun errors, and incomplete sentences are an occasional consequence of this system due to software limitations, ambient noise, and hardware issues. Any formal questions or concerns about the content, text, or information contained within the body of this dictation should be directly addressed to the provider for clarification. History of Present Illness Chief Complaint: Not feeling well for unknown duration. Primary Care Provider: Pasquale Trujillo PA-C This is a 76 yr old Guamanian speaking male who presents to ED / to not feeling well. He saw Andrey 2 month ago and was fine. He came to hospital b/c he felt sick for several days. He has hx of HTN, HLD and depression.He complains of minimal cough. He denies SOB, VALENZUELA, chest pain, nausea, vomiting, abd pain. Overall appetite had been good, but since not feeling well appetite has been decreased. He denies any difficulty urinating, dysuria, increased freq/urg, melena, hematochezia. Denies smoking or alcohol use or illicit drugs. He lives alone. Pt is refusing health safety instructor and hx is difficult to obtain. Initally in ED pt was hypotensive and tachycardia. There was concern for Sepsis. He received IVF x 2L and broad spectrum antibiotics. He is requesting food and drink due to mouth being dry. His blood pressure and heart rate improved with fluid resuscitation. Lab work consistent with MARRY elevated BUN 48, creatinine 2.27, glucose 180, mag 2.5, troponin 0.097. SARS-CoV-2 was positive[address] He [address] abdomen pelvis which revealed an absent right kidney but no evidence of urologic obstruction resulting in MARRY. CT scan was consistent with groundglass opacities within the bilateral lower lungs with interlobular septal thickening of left lower lobe. His chest x-ray revealed interstitial thickening at the lung bases, left greater than right which could represent an interstitial process chronically or interstitial pneumonitis. He was requiring 4 L of oxygen to maintain 97% saturation in ED. Allergies Allergy/AdvReac Type Severity Reaction Status Date / Time No Known Allergies Allergy Mild Unverified 06/20/21 20:58 Home Medications Medication Instructions Recorded Confirmed Type amlodipine 10 mg tablet (Norvasc) 10 mg PO HS 06/10/21 10/25/21 History lisinopril 40 mg tablet 40 mg PO DAILY@1800 06/20/21 10/25/21 History sertraline 50 mg tablet 50 mg PO QAM 06/20/21 10/25/21 History Past Med/Surg History Medical History (Updated 10/25/21 @ 12:50 by Raquel Tijerina PA-C) Chronic rhinitis Depression HTN (hypertension) Solitary kidney Surgical History (Updated 10/25/21 @ 12:09 by Raquel Tijerina PA-C) History of hernia repair Family History (Updated 10/25/21 @ 12:26 by Raquel Tijerina PA-C) Other Unknown family medical history Social History (Updated 10/25/21 @ 12:08 by Raquel Tijerina PA-C) Smoking Status: Never smoker Hx Alcohol Use: No Hx Substance Use: No Preferred Language: Guamanian marital status: Single Current Living Situation: Alone Feels Safe at Home: Yes Review of Systems Review of Systems: All systems reviewed & are unremarkable except as noted in HPI & below Physical Exam Physical Exam: Constitutional: Thin, elderly, M,vitals as above, NAD, sitting up in bed, pleasant, conversing easily Head: Normocephalic, Atraumatic Eyes: PERRL, conjunctivae normal, anicteric sclerae ENMT: external ear and nose normal, oropharynx dry membranes Neck: trachea midline, no thyromegaly normal visual inspection Respiratory: normal respiratory effort, lungs clear to auscultation, diminished bs at bases, no wheeze, rales, rhonchi. Normal insp/exp effort, no accessory muscle use Cardiovascular: RRR, no murmur, no edema Vessels: no JVD or carotid bruit Chest: normal inspection of chest Abdomen: normal bowel sounds, soft, nontender, no hepatosplenomegaly Musculoskeletal: no cyanosis or clubbing, extremities motor strength 5/5 Skin: no rashes, warm and dry normal turgor Neurologic: PERRL, EOMI, accommodation nl, no face palsy, no dysarthria CN's II-XI intact bilaterally and moves all extremities Psychiatric: A+Ox3, euthymic affect Lymphatic: no cervical or axillary lymphadenopathy : deferred Results & Data Results & Data ([place]) Vital Signs (Past 12 Hours) Vital Signs Temp Pulse Resp BP Pulse Ox 10/25/21 10:30 68 15 115/72 97 10/25/21 10:00 86 34 H 118/86 97 10/25/21 09:30 77 18 113/76 98 10/25/21 09:00 73 11 L 96 10/25/21 08:30 74 16 94/73 L 93 10/25/21 08:00 108 H 24 122/80 10/25/21 07:30 83 15 96/67 L 93 10/25/21 07:24 78 20 91 10/25/21 07:21 75 22 92 10/25/21 07:01 36.4 C L 75 22 86/57 L 91 Diagnostic Findings Chest X-Ray 10/25/21 07:10 XR chest 1V portable HISTORY: weakness COMPARISON: None. FINDINGS: The heart is borderline enlarged. Interstitial thickening at the lung bases, left greater the right. No focal lung consolidations identified. No evidence for pulmonary edema. There is a mildly tortuous thoracic aorta. IMPRESSION: Interstitial thickening at the lung bases, left greater than right. This is nonspecific and may be due to a chronic interstitial process or an interstitial pneumonitis. ACT 112: Negative or not required by law. Electronically signed by: Krishan Mireles M.D. 10/25/2021 8:11 AM Abdomen/Pelvis CT 10/25/21 09:12 CT OF THE ABDOMEN AND PELVIS WITHOUT CONTRAST CLINICAL HISTORY: Renal failure. Evaluate for hydronephrosis. COMPARISON STUDY: CT of the abdomen and pelvis December 10, 2017. TECHNIQUE: Axial images of the abdomen and pelvis were obtained without IV contrast. Images were reviewed in the axial, sagittal, and coronal planes. Automated exposure control was utilized for the study. A dose lowering technique was utilized adhering to the principles of ALARA. FINDINGS: Mild cardiomegaly is noted. Note is made of interlobular septal thickening within the left lower lobe. There are moderate left lower lobe and mild right lower lobe ground glass opacities. There is minimal groundglass opa [place] within the lingula and right middle lobe. Evaluation of the abdomen and pelvis is suboptimal on this unenhanced examination. No pneumatosis, free air or portal venous gas is present. Water att enuation hepatic lesions measure up to 6.6 cm. These were shown to represent cysts on prior contrast enhanced CT. There is no biliary or pancreatic ductal dilatation. Gallstone within the gallbladder is noted. There is no evidence for acute cholecystitis. Unenhanced images of the spleen, adrenal glands and pancreas are unremarkable. Water attenuation left renal lesion was shown to reflect a cyst on prior contrast enhanced exam. There is no left hydronephrosis. There is trace left perinephric fluid. No urinary calculi are identified. Mild enlargement of the prostate is noted. Right kidney is absent. There is no evidence for a bowel obstruction. Sigmoid diverticulosis is noted without evidence for acute diverticulitis. There is no lymphadenopathy. No acute fracture or suspicious lesion is identified within visualized skeletal structures. IMPRESSION: 1. No left hydronephrosis. No urinary calculi. Absent right kidney. Mildly enlarged prostate. 2. Ground glass opacities within the lower lungs with interlobular septal thickening within the left lower lobe. The findings may reflect pulmonary edema or an infectious process. 3. No bowel obstruction. 4. Colonic diverticulosis without evidence for acute diverticulitis. 5. Cholelithiasis. ACT 112: Negative or not required by law. Electronically signed by: Neel Morfin M.D. 10/25/2021 10:08 AM Medications Administered Medication List Discontinued Medications Albuterol (Albut/Ipratrop 3mg/0.5mg Neb 3 Ml Vial) 3 ml NEB NOW STA Stop: 10/25/21 10:03 Last Admin: 10/25/21 10:21 Dose: 3 ml Documented by: [id number] Dexamethasone Sodium Phosphate (DexamethasonePf 10 Mg/Ml Vial) 6 mg IV NOW ONE Stop: 10/25/21 10:03 Last Admin: 10/25/21 10:21 Dose: 6 mg Documented by: [id number] Sodium Chloride (Nss 1000ml) 1,000 mls @ 999 mls/hr IV .Q1H1M BRIAN Stop: 10/25/21 08:15 Last Infusion: 10/25/21 09:54 Dose: 0 mls/hr Documented by: [id number] Admin: 10/25/21 08:29 Dose: 999 mls/hr Documented by: [id number] Cefepime HCl (Maxipime) 2,000 mg in 20 mls @ 5 mls/min IV NOW STA; Protocol Stop: 10/25/21 07:14 Last Admin: 10/25/21 08:29 Dose: 5 mls/min Documented by: [id number] Sodium Chloride (Nss 1000ml) 1,000 mls @ 999 mls/hr IV .Q1H1M ONE Stop: 10/25/21 08:34 Last Infusion: 10/25/21 09:54 Dose: 0 mls/hr Documented by: [id number] Admin: 10/25/21 08:27 Dose: 999 mls/hr Documented by: [id number] Ondansetron HCl (Ondansetron Inj 2 Mg/Ml 2 Ml Vial) 4 mg IV NOW STA Stop: 10/25/21 07:11 Last Admin: 10/25/21 08:29 Dose: 4 mg Documented by: [id number] ECG Rate (beats per minute): 84 Rhythm: atrial fibrillation COVID-19 Results Results COVID-19 Adm Lab Results: RBC 5.12 M/uL (4.7-6.1) 10/25/21 WBC 5.49 K/uL (4.8-10.8) 10/25/21 Hgb 16.4 g/dL (14.0-18.0) 10/25/21 Hct 45.3 % (42-52) 10/25/21 Plt Count 132 K/uL (130-400) 10/25/21 Neutrophils (%) (Auto) 73.0 % 10/25/21 Lymphocytes (%) (Auto) 13.1 % 10/25/21 Monocytes # (Auto) 0.73 K/uL (0.11-0.59) H 10/25/21 Eosinophils # (Auto) 0.00 K/uL (0-0.5) 10/25/21 Immature Granulocyte % (Auto) 0.4 % 10/25/21 Neutrophils # (Auto) 4.01 K/uL (1.4-6.5) 10/25/21 Lymphocytes # (Auto) 0.72 K/uL (1.2-3.4) L 10/25/21 Monocytes # (Auto) 0.73 K/uL (0.11-0.59) H 10/25/21 Eosinophils # (Auto) 0.00 K/uL (0-0.5) 10/25/21 Basophils # (Auto) 0.01 K/uL (0-0.2) 10/25/21 Immature Granulocyte # (Auto) 0.02 K/uL (0.00-0.02) 10/25/21 Na 139 mmol/L (136-145) 10/25/21 K 3.5 mmol/L (3.5-5.1) 10/25/21 Cl 109 mmol/L (98-107) H 10/25/21 CO2 16 mmol/L (21-32) L 10/25/21 Anion Gap 14.0 (3-11) H 10/25/21 BUN 48 mg/dl (7-18) H 10/25/21 Creatinine 2.27 mg/dl (0.6-1.4) H 10/25/21 BUN/Creatinine Ratio 21.2 (10-20) H 10/25/21 Glucose Level 180 mg/dl (70-99) H 10/25/21 Ca 8.5 mg/dl (8.5-10.1) 10/25/21 Total Bilirubin 1.0 mg/dl (0.2-1) 10/25/21 AST/SGOT 24 U/L (15-37) 10/25/21 ALT/SGPT 22 (12-78) 10/25/21 Alkaline Phosphatase 49 U/L (45-117) 10/25/21 Total Protein 7.1 gm/dl (6.4-8.2) 10/25/21 Albumin 2.9 gm/dl (3.4-5.0) L 10/25/21 Globulin 4.2 gm/dl (2.5-4.0) H 10/25/21 Albumin/Globulin Ratio 0.7 (0.9-2) L 10/25/21 Troponin I 0.097 ng/ml (0-0.045) H* 10/25/21 Procalcitonin 3.69 ng/ml (0-0.5) H 10/25/21 COVID-19 PCR POSITIVE (Negative) A* 10/25/21 Influenza Virus Type A (PCR) Negative (Neg) 10/25/21 Influenza Virus Type B (PCR) Negative (Neg) 10/25/21 Chest X-Ray 10/25/21 Code Status & VTE Plan Code Status FULL CODE VTE Prophylaxis Plan VTE Prophylaxis will be ordered: Yes Supervising Physician Co-Signing Physician Notes Date of Service: October 25, 2021 History and physical exam performed by me as detailed by Raquel Tijerina PA-C. History notable for 76-year-old man who is reporting cough, anorexia and weakness. History is limited due to language differences, patient speaks some Moroccan but seen to probably not understand some information. I offered to use the [place]ian health safety instructor service but he vehemently declined that he understands and speaks Moroccan. Exam notable for dry oral, irregular pulse, diminished breath sounds, no crackles, on nasal cannula Labs notable for creatinine of 2.27, bicarb of 16, anion gap of 14, troponin of 0.097, procalcitonin of 3.69 Positive Covid test Chest x-ray reports interstitial thickening at the lung bases, left greater than right. Abdominal CT does not show any hydronephrosis, calculi per reports groundglass opacities within lower lungs. COVID-19 pneumonia Hypoxic respiratory failure, ?acute (unclear if patient uses oxygen at home and when asked about this, patient did not seem to understand the question) MARRY New Afib Previous Abd CT from 12/10/2017 noted bibasilar atelectatic/infiltrative change.Continue oxygen supplementation. Hence some of the XR findings could be old. However, will treat as COVID 19 pneumonia Procalcitonin is elevated, possibility of superimposed bacterial infection. Start dexamethasone. Renal function precludes remdesivir. Patient is currently dehydrated on exam. Continue IV fluids and monitor renal function Incentive spirometry and flutter Continue antibiotics for now. Heparin drip for new Afib. Card consult Agree with other plans as detailed by Raquel Tijerina PA-C
--- NOTE | 2021-10-25 12:29 | Electrocardiogram Report ---
Test Reason : Blood Pressure : / mmHG Vent. Rate : 084 BPM Atrial Rate : 075 BPM P-R Int : 000 ms QRS Dur : 088 ms QT Int : 378 ms P-R-T Axes : 000 -10 013 degrees QTc Int : 446 ms Poor data quality, interpretation may be adversely affected Atrial fibrillation Inferior infarct , age undetermined Abnormal ECG When compared with ECG of 10-JUN-2021 07:32, Atrial fibrillation has replaced Sinus rhythm Confirmed by Arun Keller ([id number]) on 10/25/2021 12:29:45 PM Referred By: REFERRED SELF Confirmed By:Arun Keller
[2021-10-25] MEDS ORDERED: Heparin IV Adult Wt-Based Standard *NO* Bolus Protocol IV SCH (13:10)
--- NOTE | 2021-10-25 13:28 | Communication Note ---
Date of Service: October 25, 2021 History and physical exam performed by me as detailed by Raquel Tijerina PA-C. History notable for 76-year-old man who is reporting cough, anorexia and weakness. History is limited due to language differences, patient speaks some Nigerian but seen to probably not understand some information. I offered to use the [employer] desktop support consultant service but he vehemently declined that he understands and speaks Nigerian. Exam notable for dry oral, diminished breath sounds, no crackles, on nasal cannula Labs notable for creatinine of 2.27, bicarb of 16, anion gap of 14, troponin of 0.097, procalcitonin of 3.69 Positive Covid test Chest x-ray reports interstitial thickening at the lung bases, left greater than right. Abdominal CT does not show any hydronephrosis, calculi per reports groundglass opacities within lower lungs. COVID-19 pneumonia Hypoxic respiratory failure, ?acute (unclear if patient uses oxygen at home and when asked about this, patient did not seem to understand the question) MARRY Start dexamethasone. Renal function precludes remdesivir. Continue IV fluids and monitor renal function Continue oxygen supplementation Incentive spirometry and flutter Procalcitonin is elevated, possibility of superimposed bacterial infection. Continue antibiotics for now. Agree with other plans as detailed by Raquel Tijerina PA-C
[2021-10-25] MEDS: HEPARIN SODIUM/DEXTROSE 25,000 UNITS/500 ML BAG IV SCH (13:59)
--- NOTE | 2021-10-25 15:41 | Cardiology Consultation ---
Date of Consultation October 25, 2021 Assessment & Plan (1) COVID-19: (2) New onset a-fib: Newly recognized atrial fibrillation in the setting of SARS-CoV-2 pneumonia. Oxygen saturations are stable, with most recent measurement of pulse oximetry 94% on 4 L nasal cannula. Blood pressure is improved with IV fluids, with recent systolic blood pressures in the 110s to 120s. He is to be admitted with telemetry monitoring, and appropriate isolation. Proceed with IV fluid resuscitation given acute kidney injury. Proceed with unfractioned heparin infusion for stroke and venous thromboembolic prophylaxis. Add low-dose metoprolol with holds for systolic blood pressure less than 100. The admitting team had ordered an echocardiogram. At present, I am going to cancel this order, and will reassess the appropriate time clinically. No significant pericardial effusion on limited visualization on CT. Trend troponin, patient has no symptoms of angina at present. He does have nonspecific T wave flattening in the inferior leads as well as poor R wave progression in the intraportal leads. These changes were actually noted on a preoperative EKG dating back to 2018 which had prompted his stress testing at that time, and are therefore chronic. History of Present Illness History of Present Illness Navjot Mcguire is a 76-year-old male seen in cardiology consultation per the request of Raquel Tijerina for the evaluation of newly recognized atrial fibrillation, in the setting of SARS-CoV-2 pneumonia. Patient previously been seen as an outpatient in cardiology clinic in 2018 as preoperative evaluation pr ior to elective hernia repair. A dobutamine stress echocardiogram was negative for ischemia, he was noted to have mild dilatation of the aortic root and proximal ascending aorta with measurements of 3.9 and 4.1 cm respectively. His outpatient chart describes a history of medical noncompliance. He is originally from the [facility], and speaks limited Moroccan. Per my discussion with Dr. Paniagua of emergency medicine, the patient presented today stating that he was very sick, and did not elaborate with regards to history. Testing revealed atrial fibrillation with rates ranging from 80 bpm to 110 bpm,Mild hypotension with lowest blood pressure of 86/57, creatinine of 2.27, with previous measurement of 1.39 in May,, troponin 0 0.097 NG per mL, SARS-CoV-2 PCR test positive chest x-ray concerning for pneumonia. At the time my assessment, the patient had received IV fluid resuscitation, and was already feeling markedly improved. Allergies Allergy/AdvReac Type Severity Reaction Status Date / Time No Known Allergies Allergy Mild Unverified 06/20/21 20:58 Home Medications Medication Instructions Recorded Confirmed Type amlodipine 10 mg tablet (Norvasc) 10 mg PO HS 06/10/21 10/25/21 History lisinopril 40 mg tablet 40 mg PO DAILY@1800 06/20/21 10/25/21 History sertraline 50 mg tablet 50 mg PO QAM 06/20/21 10/25/21 History Patient History Medical History Chronic rhinitis Depression HTN (hypertension) Solitary kidney Surgical History History of hernia repair Family History Other Unknown family medical history Social History Smoking Status: Never smoker Hx Alcohol Use: No Hx Substance Use: No Preferred Language: [facility] marital status: Single Current Living Situation: Alone Feels Safe at Home: Yes Review of Systems Review of Systems: All systems reviewed & are unremarkable except as noted in HPI & below Physical Exam Constitutional: + ill appearing Respiratory: No cough Cardiovascular: Rate/Rhythm: + irregularly irregular Extremities: no edema Neurologic: Conversant, moves all 4 extremities Results & Data ([facility]) Vital Signs (Past 12 Hours) Vital Signs Temp Pulse Resp BP Pulse Ox 10/25/21 15:30 85 13 112/81 94 10/25/21 15:00 85 15 116/76 95 10/25/21 14:30 91 H 23 140/120 H 10/25/21 14:00 88 19 123/78 94 10/25/21 13:30 31 H 10/25/21 13:00 141 H 17 94 10/25/21 12:30 92 H 19 110/84 94 10/25/21 12:00 108 H 27 H 96 10/25/21 11:30 88 20 94 10/25/21 11:00 88 17 112/74 94 10/25/21 10:30 68 15 115/72 97 10/25/21 10:00 86 34 H 118/86 97 10/25/21 09:30 77 18 113/76 98 10/25/21 09:00 73 11 L 96 10/25/21 08:30 74 16 94/73 L 93 10/25/21 08:00 108 H 24 122/80 10/25/21 07:30 83 15 96/67 L 93 10/25/21 07:24 78 20 91 10/25/21 07:21 75 22 92 10/25/21 07:01 36.4 C L 75 22 86/57 L 91 Laboratory Results Cardiac Enzymes 10/25/21 Range/Units 08:07 AST 24 (15-37) U/L Troponin I 0.097 H* (0-0.045) ng/ml CBC 10/25/21 Range/Units 08:07 WBC 5.49 (4.8-10.8) K/uL RBC 5.12 (4.7-6.1) M/uL Hgb 16.4 (14.0-18.0) g/dL Hct 45.3 (42-52) % Plt Count 132 (130-400) K/uL Neut # (Auto) 4.01 (1.4-6.5) K/uL Lymph # (Auto) 0.72 L (1.2-3.4) K/uL [place] # (Auto) 0.73 H (0.11-0.59) K/uL Eos # (Auto) 0.00 (0-0.5) K/uL Baso # (Auto) 0.01 (0-0.2) K/uL Comprehensive Metabolic Panel 10/25/21 Range/Units 08:07 Sodium 139 (136-145) mmol/L Potassium 3.5 (3.5-5.1) mmol/L Chloride 109 H (98-107) mmol/L Carbon Dioxide 16 L (21-32) mmol/L BUN 48 H (7-18) mg/dl Creatinine 2.27 H (0.6-1.4) mg/dl Glucose 180 H (70-99) mg/dl Calcium 8.5 (8.5-10.1) mg/dl AST 24 (15-37) U/L ALT 22 (12-78) Alkaline Phosphatase 49 (45-117) U/L Total Protein 7.1 (6.4-8.2) gm/dl Albumin 2.9 L (3.4-5.0) gm/dl Intake and Output 10/25/21 10/25/21 10/25/21 06:59 14:59 22:59 Intake Total 1999 Balance 1999 Intake: IV 1999 Sodium Chloride 0.9% 1000ML 1, 1999 000 ml @ 999 mls/hr IV .Q1H1M ONE Rx#:[id number] Other: Weight 70 kg Weight Measurement Method Chair Scale Patient Weight 10/26/21 06:59 Weight [address] of the abdomen pelvis notable for absent right kidney No left hydronephrosis Groundglass opacities in the lung consistent with viral pneumonia Chronic diverticulosis without diverticulitis EKG performed 06/10/2021 at 7:32 AM revealed sinus rhythm with premature ventricular contractions. EKG performed 10/25/2021 at 7:21 AM, atrial fibrillation 84 bpm, age- indeterminate inferior infarction cannot be excluded, no significant repolarization changes EKG performed 10/25/2021 at 1245, atrial fibrillation 91 bpm, poor R wave progression in the precordial leads. Nonspecific T wave flattening in the inferior leads -Of note, at the time of May, tracing, T wave flattening noted in the inferior leads, as well as the poor R wave progression -Similar findings were also noted dating back to 2018
[2021-10-25] MEDS ORDERED: GLUCOSE 40% GEL 15 GM TUBE PO PRN (15:59)
[2021-10-25] MEDS ORDERED: ALUMINUM/MAGNESIUM SUSP 30 ML UDC PO PRN (15:59)
[2021-10-25] MEDS ORDERED: DEXTROSE 50% 50 ML SYRINGE IV PRN (15:59)
[2021-10-25] MEDS ORDERED: GLUCAGON FOR INJ 1 MG VIAL SQ PRN (15:59)
[2021-10-25] MEDS ORDERED: POLYETHYLENE (MIRALAX) 17 GM PACK PO PRN (15:59)
[2021-10-25] MEDS ORDERED: MAGNESIUM HYDROXIDE SUSP 30 ML UDC PO PRN (15:59)
[2021-10-25] MEDS ORDERED: ONDANSETRON INJ 2 MG/ML 2 ML VIAL IV PRN (15:59)
[2021-10-25] MEDS ORDERED: METOPROLOL TARTRATE 1 MG/ML VIAL IV PRN (15:59)
[2021-10-25] MEDS ORDERED: GLUCOSE 10 TABS/TUBE PO PRN (15:59)
[2021-10-25] MEDS ORDERED: CARBOHYDRATES FOR HYPOGLYCEMIA PO PRN (15:59)
[2021-10-25] MEDS ORDERED: ACETAMINOPHEN 325 MG TAB PO PRN (15:59)
[2021-10-25] MEDS: DOXYCYCLINE HYCLATE 100 MG CAP PO SCH ×2 (16:43→21:54)
[2021-10-25] MEDS: ALBUTEROL 0.083% NEBU SOLN 3 ML VIAL NEB SCH ×2 (16:43→17:52)
[2021-10-25] MEDS: BENZONATATE 100 MG CAPSULE PO SCH ×2 (16:43→21:54)
[2021-10-25] MEDS: cefTRIAXone SODIUM 1,000 MG in DEXTROSE 5% 50 ML IV SCH (18:54)
[2021-10-25 21:15] LABS: BUN Creatinine Ratio 25.5 (10-20); Blood Urea Nitrogen 46 mg/dl (7-18); Calcium 7.9 mg/dl (8.5-10.1); Carbon Dioxide 17 mmol/L (21-32); Chloride 113 mmol/L (98-107); Est GFR (African American) 41.2 ml/min; Est GFR (Non-African American) 35.5 ml/min; Glucose 300 mg/dl (70-99); Potassium 3.3 mmol/L (3.5-5.1); Sodium 140 mmol/L (136-145)
[2021-10-25 21:32] LABS: Troponin I 0.054 ng/ml (0-0.045)
[2021-10-25 22:16] LABS: Partial Thromboplastin Ratio 2.3
[2021-10-25 22:31] LABS: Partial Thromboplastin Time 60.1 Seconds (21.0-31.0)
[2021-10-26] MEDS: ALBUTEROL 0.083% NEBU SOLN 3 ML VIAL NEB SCH ×2 (00:26→07:51)
[2021-10-26] MEDS: SERTRALINE HCL 50 MG TABLET PO SCH (09:43)
[2021-10-26] MEDS: dexAMETHasone 6 MG in SYRINGE 0 ML IV SCH (09:43)
[2021-10-26] MEDS: DOXYCYCLINE HYCLATE 100 MG CAP PO SCH ×2 (09:43→21:24)
[2021-10-26] MEDS: BENZONATATE 100 MG CAPSULE PO SCH ×3 (09:46→21:29)
[2021-10-26] MEDS ORDERED: ALBUTEROL 0.083% NEBU SOLN 3 ML VIAL NEB PRN (09:47)
[2021-10-26] MEDS ORDERED: POTASSIUM CHLORIDE CRTAB 20 MEQ TABCR PO STA (11:20)
[2021-10-26 11:34] LABS: Hematocrit (blood only) 42.6 % (42-52); Hemoglobin 14.8 g/dL (14.0-18.0); Immature Granulocytes # (auto) 0.02 K/uL (0.00-0.02); Immature Granulocytes % (auto) 0.2 %; Lymphocytes # (auto) 0.65 K/uL (1.2-3.4); Lymphocytes % (auto) 6.1 %; Mean Corpuscular Hemoglobin 30.9 pg (25-34); Mean Corpuscular Hgb Conc 34.7 g/dL (32-36); Mean Corpuscular Volume 88.9 fL (80-100); Mean Platelet Volume 8.2 fL (7.4-10.4); Monocytes # (auto) 0.62 K/uL (0.11-0.59); Monocytes % (auto) 5.8 %; Neutrophils # (auto) 9.43 K/uL (1.4-6.5); Neutrophils % (auto) 87.9 %; Platelet Count 158 K/uL (130-400); RDW Coefficient of Variation 12.9 % (11.5-14.5); RDW Standard Deviation 42.4 fL (36.4-46.3); Red Blood Count 4.79 M/uL (4.7-6.1); White Blood Count 10.72 K/uL (4.8-10.8)
[2021-10-26 11:44] LABS: Partial Thromboplastin Ratio 1.2; Partial Thromboplastin Time 31.9 Seconds (21.0-31.0)
[2021-10-26 11:58] LABS: Albumin Level 2.4 gm/dl (3.4-5.0); BUN Creatinine Ratio 25.2 (10-20); Creatinine Clr Calc Pharmacy 45.5 ml/min; Est GFR (African American) 57.1 ml/min; Est GFR (Non-African American) 49.2 ml/min; Magnesium 2.2 mg/dl (1.8-2.4); Potassium 3.1 mmol/L (3.5-5.1)
[2021-10-26 12:01] LABS: Albumin Globulin Ratio 0.6 (0.9-2); Bilirubin,Total 0.6 mg/dl (0.2-1); Globulin 3.9 gm/dl (2.5-4.0); Total Protein 6.3 gm/dl (6.4-8.2)
[2021-10-26] MEDS ORDERED: HEPARIN IV BOLUS 5,000 UNITS in SYRINGE 0 ML IV ONE (12:15)
[2021-10-26] MEDS: METOPROLOL TARTRATE 25 MG TAB PO SCH ×2 (12:31→21:25)
--- NOTE | 2021-10-26 12:55 | Electrocardiogram Report ---
Test Reason : Blood Pressure : / mmHG Vent. Rate : 091 BPM Atrial Rate : 089 BPM P-R Int : 000 ms QRS Dur : 100 ms QT Int : 372 ms P-R-T Axes : 000 -09 -12 degrees QTc Int : 457 ms Atrial fibrillation Nonspecific T wave abnormality Abnormal ECG When compared with ECG of 25-OCT-2021 07:21, Nonspecific T wave abnormality, worse in Inferior leads Confirmed by Arun Keller ([id number]) on 10/26/2021 12:54:38 PM Referred By: REFERRED SELF Confirmed By:Arun Keller
[2021-10-26] MEDS: HEPARIN SODIUM/DEXTROSE 25,000 UNITS/500 ML BAG IV SCH ×2 (13:52→22:05)
[2021-10-26] MEDS: cefTRIAXone SODIUM 1,000 MG in DEXTROSE 5% 50 ML IV SCH (17:13)
--- NOTE | 2021-10-26 17:13 | Cardiology Progress Note ---
Date of Service October 26, 2021 Assessment & Plan (1) COVID-19: (2) New onset a-fib: Plan: Newly recognized atrial fibrillation in the setting of SARS-CoV-2 pneumonia. Oxygen saturations are stable. Remains in atrial fibrillation with ventricular rates ranging from 70s to 80s, brief episodes of low 100s. Continue unfractionated heparin, anticoagulant of choice in the setting of acute SARS-CoV-2 pneumonia and atrial fibrillation. Metoprolol tartrate 25 mg twice daily added. Update EKG in am. Admission and Anticipated Discharge Date Admission Date: October 25, 2021 Subjective Patient seen in follow-up. He is on the isolation [facility] room 2611. States he feels proved. No complaints. Physical Exam Constitutional: + ill appearing Cardiovascular: Rate/Rhythm: + irregularly irregular Extremities: no edema Results & Data ([facility]) Vital Signs (Past 12 Hours) Vital Signs Temp Pulse Pulse Resp BP Pulse Ox 10/26/21 15:42 36.4 C L 73 20 123/80 91 10/26/21 12:09 36.6 C 83 18 136/89 92 10/26/21 08:07 35.9 C L 86 22 143/83 H 90 10/26/21 07:37 60
[2021-10-26 20:28] LABS: Partial Thromboplastin Ratio 3.3
[2021-10-26 20:46] LABS: Partial Thromboplastin Time 86.4 Seconds (21.0-31.0)
--- NOTE | 2021-10-26 23:58 | Hospitalist Progress Note ---
Date of Service October 26, 2021 Assessment & Plan (1) SIRS (systemic inflammatory response syndrome): (2) Hypoxia: (3) Pneumonia due to COVID-19 virus: Plan: Pt initially met SIRS criteria on admission 2/2 to hypotension and tachycardia Procalcitonin elevated Lactic acid WNL, afebrile and WBC WNL Cefepime and admission Continue antibiotic with c Rocephin and doxy Blood culture no growth We will repeat procalcitonin in a.m. Continue monitor closely COVID -19 PNA Hypoxia Unvaccinated for COVID-19 CT showed ground glass opacities within the lower lungs with interlobular septal thickening within the left lower lobe. IV Dexamethasone 6mg daily He does not meet criteria for remdesivir given renal fxn Continue IV rocephin and oral doxycycline for superimposed bacterial infection due to elevated procalcitonin pulmonary toilet with nebs, spirometry and flutter valve Has been weaned from oxygen Continue to encourage patient for self proning Continue monitor closely (4) MARRY (acute kidney injury): Plan: Creatinine on admission 2.27 likely in setting of pre renal/dehydration due to poor po intake CT a/p: No left hydronephrosis. No urinary calculi. Absent right kidney. Received IV fluids Creatinine improved to 1.39 today Continue monitor BMP (5) Elevated troponin: Plan: Mostly due to A. fib Denies any chest pain On heparin drip Continue metoprolol 25 twice daily (6) New onset a-fib: Plan: no prior hx ecg on admission and repeat reveal afib Rate control [id number] 3 (age, hx of HTN) Continue heparin drip Cardiology on board started on metoprolol tartrate 25 twice daily Will transition to Eliquis in a.m. (7) HTN (hypertension): Plan: Lisinopril is on hold due to MARRY and low BP Continue to hold amlodipine Continue monitor BP (8) Depression: Plan: continue zoloft Plan: DVT ppx: On heparin drip FULL CODE Admission and Anticipated Discharge Date Admission Date: October 25, 2021 Subjective Patient was seen and examined for follow-up of COVID-19 and A. fib Lying in bed with no acute distress Patient said that he feels much better Saturating above 90%on room air Denies any chest pain, palpitation, dizziness, shortness of breath Review of Systems Review of Systems: All systems reviewed & are unremarkable except as noted in Subjective Physical Exam Physical Exam: General- No acute distress Head- atraumatic Eyes- PERRL, EOMI, ENT- oropharynx clear Neck- supple, no JVD Lungs- +diminished BS Heart- irregular rhythm; no murmur Abdomen- normal bowel sounds, soft, nontender Extremities- no calf tenderness Neuro- alert, oriented x 3; PERRL, EOMI; no facial palsy; no dysarthria Skin- warm & dry Results & Data Results & Data ([facility]) Vital Signs (Past 12 Hours) Vital Signs Temp Pulse Resp BP BP Pulse Ox 10/26/21 22:50 37.0 C 59 L 20 123/77 91 10/26/21 19:30 36.5 C 72 20 129/81 90 10/26/21 15:42 36.4 C L 73 20 123/80 91 10/26/21 12:09 36.6 C 83 18 136/89 92
[2021-10-27 05:00] LABS: Partial Thromboplastin Ratio 2.5
[2021-10-27 05:09] LABS: BUN Creatinine Ratio 25.9 (10-20); Calcium 8.1 mg/dl (8.5-10.1); Creatinine Clr Calc Pharmacy 52.7 ml/min; Est GFR (African American) 68.1 ml/min; Est GFR (Non-African American) 58.8 ml/min; Potassium 3.7 mmol/L (3.5-5.1)
[2021-10-27 05:15] LABS: Partial Thromboplastin Time 65.8 Seconds (21.0-31.0)
[2021-10-27 07:37] LABS: Estimated Average Glucose 120 mg/dl; Hemoglobin A1C 5.8 % (4.5-5.6)
[2021-10-27] MEDS: DOXYCYCLINE HYCLATE 100 MG CAP PO SCH ×2 (08:05→21:02)
[2021-10-27] MEDS: SERTRALINE HCL 50 MG TABLET PO SCH (08:05)
[2021-10-27] MEDS: dexAMETHasone 6 MG in SYRINGE 0 ML IV SCH (08:06)
[2021-10-27] MEDS: METOPROLOL TARTRATE 25 MG TAB PO SCH ×2 (08:07→21:02)
[2021-10-27] MEDS: BENZONATATE 100 MG CAPSULE PO SCH ×3 (11:41→21:02)
[2021-10-27] MEDS ORDERED: POTASSIUM CHLORIDE CRTAB 20 MEQ TABCR PO STA (12:37)
[2021-10-27] MEDS: HEPARIN SODIUM/DEXTROSE 25,000 UNITS/500 ML BAG IV SCH (13:58)
--- NOTE | 2021-10-27 15:56 | Electrocardiogram Report ---
Test Reason : Blood Pressure : / mmHG Vent. Rate : 068 BPM Atrial Rate : 075 BPM P-R Int : 000 ms QRS Dur : 108 ms QT Int : 398 ms P-R-T Axes : 000 -07 -52 degrees QTc Int : 423 ms Atrial fibrillation Poor R wave progression, consider anterior LA vs. lead placement vs. LVH Abnormal ECG When compared with ECG of 25-OCT-2021 12:45, No significant change was found Confirmed by Arun Keller ([id number]) on 10/27/2021 3:56:14 PM Referred By: REFERRED SELF Confirmed By:Arun Keller
--- NOTE | 2021-10-27 16:13 | Cardiology Progress Note ---
Date of Service October 27, 2021 Assessment & Plan (1) COVID-19: (2) New onset a-fib: Plan: Newly recognized atrial fibrillation in the setting of SARS-CoV-2 pneumonia. Oxygen saturations are stable. Telemetry reveals AF in the 70s. EKG 10/27, AF at 68 bpm. Has chronic anterior infarct pattern, prompting past outpatient stress test with negative work up then. Case discussed with Dr Blanchard. Eliquis cost $47 for 30 day. DC heparin infusion at 2100 and start Eliquis then. Continue Metoprolol tartrate 25 mg BID. DC to home on 10/28 if he continues to improve. Plan for outpatient echo after he completes his course of self isolation. Admission and Anticipated Discharge Date Admission Date: October 25, 2021 Subjective Pt seen in follow up. Feels better. Oxygen saturation 92 % on room air. Physical Exam Constitutional: + ill appearing Cardiovascular: Rate/Rhythm: + irregularly irregular Extremities: no edema Results & Data ([facility]) Vital Signs (Past 12 Hours) Vital Signs Temp Pulse Pulse Resp BP Pulse Ox 10/27/21 12:05 36.3 C L 77 20 134/82 92 10/27/21 07:39 36.7 C 77 16 122/80 88 L 10/27/21 07:00 65
[2021-10-27 18:14] LABS: SARS CoV2 RNA(COVID-19) InHosp POSITIVE (Negative)
[2021-10-27] MEDS: cefTRIAXone SODIUM 1,000 MG in DEXTROSE 5% 50 ML IV SCH (18:40)
--- NOTE | 2021-10-27 20:52 | XRay Report ---
XR chest 1V portable HISTORY: 76 years-old Male hypoxia acute hypoxia COMPARISON: Chest radiograph 10/25/2021 TECHNIQUE: Portable AP view the chest FINDINGS: Cardiac silhouette is enlarged. Interstitial coarsening with ill-defined mid to lower lung zone airsp bella opacities, slightly progressed from prior. No pneumothorax, large pleural effusion or overt pulmo nary edema. Degenerative changes of the shoulders and spine. IMPRESSION: Mildly progressed mid to lower lung zone pulmonary opacities suggestive of multifocal pne umonia. ACT 112: Negative or not required by law. The above report was generated using voice recognition software. It may contain grammatical, syntax o r spelling errors. Electronically signed by: Geoffrey Nguyễn M.D. 10/27/2021 8:50 PM
--- NOTE | 2021-10-27 22:03 | Hospitalist Progress Note ---
Date of Service October 27, 2021 Assessment & Plan (1) SIRS (systemic inflammatory response syndrome): (2) Hypoxia: (3) Pneumonia due to COVID-19 virus: Plan: Pt initially met SIRS criteria on admission 2/2 to hypotension and tachycardia Procalcitonin elevated on admission Lactic acid WNL, afebrile and WBC WNL Received cefepime in the ER Continue antibiotic with Rocephin and doxy Blood culture no growth Procalcitonin trending down at 0.69 Continue monitor closely COVID -19 PNA Hypoxia Unvaccinated for COVID-19 CT showed ground glass opacities within the lower lungs with interlobular septal thickening within the left lower lobe. Repeat chest x-ray showed Mildly progressed mid to lower lung zone pulmonary opacities suggestive of multifocal pneumonia. Continue IV Dexamethasone 6mg daily He does not meet criteria for remdesivir given renal fxn Continue IV rocephin and oral doxycycline for superimposed bacterial infection due to elevated procalcitonin pulmonary toilet with nebs, spirometry and flutter valve He was placed on oxygen supplement, will check pulse oximetry sensor since patient is asymptomatic Continue to encourage patient for self proning Continue monitor closely (4) MARRY (acute kidney injury): Plan: Creatinine on admission 2.27 likely in setting of pre renal/dehydration due to poor po intake CT a/p: No left hydronephrosis. No urinary calculi. Absent right kidney. Received IV fluids Creatinine improved to 1.2 today Resolved (5) Elevated troponin: Plan: Mostly due to A. fib Denies any chest pain IV heparin drip, will transition to Eliquis Continue metoprolol 25 twice daily (6) New onset a-fib: Plan: no prior hx ecg on admission and repeat reveal afib Rate control [id number] 3 (age, hx of HTN) We will transition IV heparin drip to Eliquis. Checked the [facility] and it will be $47 for 30-day supply Cardiology on board Continue metoprolol tartrate 25 twice daily (7) HTN (hypertension): Plan: Lisinopril is on hold due to MARRY and low BP Will resume amlodipine Continue monitor BP (8) Depression: Plan: continue zoloft Plan: DVT ppx: On heparin drip, will transition to Eliquis FULL CODE Admission and Anticipated Discharge Date Admission Date: October 25, 2021 Subjective Patient was seen and examined for follow-up of COVID-19 and A. fib Lying in bed with no acute distress Patient said that he feels much better Later in the afternoon received a call from the nurse that his saturation dropped below the 90s (he was asymptomatic ) towas placed on 3 L nasal cannula Denies any chest pain, palpitation, dizziness, shortness of breath Review of Systems Review of Systems: All systems reviewed & are unremarkable except as noted in Subjective Physical Exam Physical Exam: General- No acute distress Head- atraumatic Eyes- PERRL, EOMI, ENT- oropharynx clear Neck- supple, no JVD Lungs- +diminished BS Heart- irregular rhythm; no murmur Abdomen- normal bowel sounds, soft, nontender Extremities- no calf tenderness Neuro- alert, oriented x 3; PERRL, EOMI; no facial palsy; no dysarthria Skin- warm & dry Results & Data Results & Data ([facility]) Vital Signs (Past 12 Hours) Vital Signs Temp Pulse Pulse Resp BP BP Pulse Ox 10/27/21 19:53 36.6 C 85 20 138/89 94 10/27/21 17:10 90 10/27/21 17:09 36.4 C L 76 20 133/82 86 L 10/27/21 15:00 66 10/27/21 12:05 36.3 C L 77 20 134/82 92
[2021-10-27] MEDS: APIXABAN 2.5 MG TAB PO SCH (22:10)
[2021-10-28] MEDS ORDERED: amLODIPine BESYLATE 5 MG TAB PO SCH (03:05)
[2021-10-28 07:33] LABS: Hematocrit (blood only) 44.4 % (42-52); Hemoglobin 15.5 g/dL (14.0-18.0); Mean Corpuscular Hemoglobin 31.2 pg (25-34); Mean Corpuscular Hgb Conc 34.9 g/dL (32-36); Mean Corpuscular Volume 89.3 fL (80-100); Mean Platelet Volume 8.4 fL (7.4-10.4); Platelet Count 173 K/uL (130-400); RDW Coefficient of Variation 13.1 % (11.5-14.5); RDW Standard Deviation 42.9 fL (36.4-46.3); Red Blood Count 4.97 M/uL (4.7-6.1); White Blood Count 9.79 K/uL (4.8-10.8)
[2021-10-28 08:07] LABS: BUN Creatinine Ratio 24.2 (10-20); Calcium 8.6 mg/dl (8.5-10.1); Creatinine Clr Calc Pharmacy 54.5 ml/min; Est GFR (African American) 68.8 ml/min; Est GFR (Non-African American) 59.4 ml/min; Potassium 4.1 mmol/L (3.5-5.1)
[2021-10-28] MEDS ORDERED: FUROSEMIDE INJ 20 MG/2 ML VIAL IV ONE (08:27)
[2021-10-28] MEDS: DOXYCYCLINE HYCLATE 100 MG CAP PO SCH ×2 (08:28→21:32)
[2021-10-28] MEDS: APIXABAN 2.5 MG TAB PO SCH ×2 (08:28→21:32)
[2021-10-28] MEDS: dexAMETHasone 6 MG in SYRINGE 0 ML IV SCH (08:28)
[2021-10-28] MEDS: BENZONATATE 100 MG CAPSULE PO SCH ×3 (08:28→21:31)
[2021-10-28] MEDS: METOPROLOL TARTRATE 25 MG TAB PO SCH ×2 (08:29→21:32)
[2021-10-28] MEDS: SERTRALINE HCL 50 MG TABLET PO SCH (08:29)
--- NOTE | 2021-10-28 10:16 | Communication Note ---
Date of Service: October 28, 2021 Telemetry reviewed, rate controlled atrial fibrillation noted overnight. Oxygen requirements however seem to have increased. He was initially deemed to not be a candidate for remdesivir therapy due to acute renal insufficiency, however his creatinine has improved from 2.27 down to 1.19 He has been successfully transitioned to apixaban, and heparin has been discontinued. Continue metoprolol tartrate 25 mg twice daily. We will discuss treatment plan with hospital service. [place] I have already requested outpatient cardiology follow-up visit for him and an echocardiogram to be performed next month.
[2021-10-28] MEDS: cefTRIAXone SODIUM 1,000 MG in DEXTROSE 5% 50 ML IV SCH (16:33)
[2021-10-28] MEDS: amLODIPine BESYLATE 5 MG TAB PO SCH (21:32)
--- NOTE | 2021-10-28 23:45 | Hospitalist Progress Note ---
Date of Service October 28, 2021 Assessment & Plan (1) SIRS (systemic inflammatory response syndrome): (2) Hypoxia: (3) Pneumonia due to COVID-19 virus: Plan: Pt initially met SIRS criteria on admission 2/2 to hypotension and tachycardia Procalcitonin elevated on admission Lactic acid WNL, afebrile and WBC WNL Received cefepime in the ER Continue antibiotic with Rocephin and doxy Blood culture no growth Procalcitonin trending down at 0.69 Continue monitor closely COVID -19 PNA Hypoxia Unvaccinated for COVID-19 CT showed ground glass opacities within the lower lungs with interlobular septal thickening within the left lower lobe. Repeat chest x-ray showed Mildly progressed mid to lower lung zone pulmonary opacities suggestive of multifocal pneumonia. Continue IV Dexamethasone 6mg daily He does not meet criteria for remdesivir given renal fxn Continue IV rocephin and oral doxycycline for superimposed bacterial infection due to elevated procalcitonin pulmonary toilet with nebs, spirometry and flutter valve Currently on 6 L nasal cannula Continue to encourage patient for self proning Continue monitor closely (4) MARRY (acute kidney injury): Plan: Creatinine on admission 2.27 likely in setting of pre renal/dehydration due to poor po intake CT a/p: No left hydronephrosis. No urinary calculi. Absent right kidney. Received IV fluids Creatinine improved to 1.19 today Resolved (5) Elevated troponin: Plan: Mostly due to A. fib Denies any chest pain IV heparin drip transition to Eliquis Continue metoprolol 25 twice daily (6) New onset a-fib: Plan: no prior hx ecg on admission and repeat reveal afib Rate control [id number] 3 (age, hx of HTN) Continue Eliquis. Checked the [facility] and it will be $47 for 30-day supply Cardiology on board Continue metoprolol tartrate 25 twice daily (7) HTN (hypertension): Plan: Lisinopril is on hold due to MARRY and low BP Continue Amlodipine at bedtime Continue monitor BP (8) Depression: Plan: continue zoloft Plan: DVT ppx: On heparin drip, will transition to Eliquis FULL CODE Admission and Anticipated Discharge Date Admission Date: October 25, 2021 Subjective Patient was seen and examined for follow-up of COVID-19 and A. fib Lying in bed with no acute distress Pt said that he is not feeling well today He said that his appetite is poor His breathing seems to get worse this morning Currently on 6 L nasal cannula Review of Systems Review of Systems: All systems reviewed & are unremarkable except as noted in Subjective Physical Exam Physical Exam: General- No acute distress Head- atraumatic Eyes- PERRL, EOMI, ENT- oropharynx clear Neck- supple, no JVD Lungs- +diminished BS Heart- irregular rhythm; no murmur Abdomen- normal bowel sounds, soft, nontender Extremities- no calf tenderness Neuro- alert, oriented x 3; PERRL, EOMI; no facial palsy; no dysarthria Skin- warm & dry Results & Data Results & [facility]) Vital Signs (Past 12 Hours) Vital Signs Temp Pulse Pulse Resp BP BP Pulse Ox 10/28/21 23:24 135/86 10/28/21 23:09 36.5 C 73 20 96 10/28/21 19:52 36.8 C 67 20 141/88 H 94 10/28/21 18:27 93 10/28/21 15:35 79 10/28/21 15:03 36.9 C 81 20 145/92 H 86 L 10/28/21 14:30 95
[2021-10-29] MEDS: dexAMETHasone 6 MG in SYRINGE 0 ML IV SCH (09:35)
[2021-10-29] MEDS: BENZONATATE 100 MG CAPSULE PO SCH ×3 (10:06→20:48)
[2021-10-29] MEDS: APIXABAN 2.5 MG TAB PO SCH ×2 (10:06→20:46)
[2021-10-29] MEDS: METOPROLOL TARTRATE 25 MG TAB PO SCH ×2 (10:07→20:47)
[2021-10-29] MEDS: DOXYCYCLINE HYCLATE 100 MG CAP PO SCH ×2 (10:07→20:48)
[2021-10-29] MEDS: SERTRALINE HCL 50 MG TABLET PO SCH (10:07)
[2021-10-29 13:17] LABS: Basophils # (auto) 0.01 K/uL (0-0.2); Basophils % (auto) 0.1 %; Hematocrit (blood only) 45.9 % (42-52); Hemoglobin 16.2 g/dL (14.0-18.0); Immature Granulocytes # (auto) 0.04 K/uL (0.00-0.02); Immature Granulocytes % (auto) 0.4 %; Lymphocytes # (auto) 0.19 K/uL (1.2-3.4); Lymphocytes % (auto) 1.9 %; Mean Corpuscular Hemoglobin 31.7 pg (25-34); Mean Corpuscular Hgb Conc 35.3 g/dL (32-36); Mean Corpuscular Volume 89.8 fL (80-100); Mean Platelet Volume 8.4 fL (7.4-10.4); Monocytes # (auto) 0.38 K/uL (0.11-0.59); Monocytes % (auto) 3.8 %; Neutrophils # (auto) 9.39 K/uL (1.4-6.5); Neutrophils % (auto) 93.8 %; Platelet Count 183 K/uL (130-400); RDW Standard Deviation 42.8 fL (36.4-46.3); Red Blood Count 5.11 M/uL (4.7-6.1); White Blood Count 10.01 K/uL (4.8-10.8)
[2021-10-29 14:01] LABS: Albumin Level 2.3 gm/dl (3.4-5.0); BUN Creatinine Ratio 24.5 (10-20); Bilirubin Direct 0.3 mg/dl (0-0.2); Calcium 8.6 mg/dl (8.5-10.1); Est GFR (African American) 73.3 ml/min; Est GFR (Non-African American) 63.2 ml/min; Potassium 3.8 mmol/L (3.5-5.1)
[2021-10-29 14:03] LABS: Bilirubin,Total 1.2 mg/dl (0.2-1); Total Protein 6.5 gm/dl (6.4-8.2)
[2021-10-29] MEDS: cefTRIAXone SODIUM 1,000 MG in DEXTROSE 5% 50 ML IV SCH (16:31)
--- NOTE | 2021-10-29 17:39 | Hospitalist Progress Note ---
Date of Service October 29, 2021 Assessment & Plan (1) SIRS (systemic inflammatory response syndrome): (2) Hypoxia: (3) Pneumonia due to COVID-19 virus: Plan: per Dr. Blanchard's notes with addendum: Pt initially met SIRS criteria on admission 2/2 to hypotension and tachycardia Procalcitonin elevated on admission Lactic acid WNL, afebrile and WBC WNL Received cefepime in the ER Continue antibiotic with Rocephin and doxy Blood culture no growth Procalcitonin trending down at 0.69 Continue monitor closely COVID -19 PNA Hypoxia Unvaccinated for COVID-19 CT showed ground glass opacities within the lower lungs with interlobular septal thickening within the left lower lobe. Repeat chest x-ray showed Mildly progressed mid to lower lung zone pulmonary opacities suggestive of multifocal pneumonia. Continue IV Dexamethasone 6mg daily He does not meet criteria for remdesivir given renal fxn Continue IV rocephin and oral doxycycline for superimposed bacterial infection due to elevated procalcitonin pulmonary toilet with nebs, spirometry and flutter valve Currently on 6 L nasal cannula Continue to encourage patient for self proning Continue monitor closely 10/29 Hospital day 4 on 8 L NC CXR pending continue Decadron continue Ceftri + Doxy will contact family to ask if they are agreeable to start Remdesivir (4) MARRY (acute kidney injury): Plan: Creatinine on admission 2.27 likely in setting of pre renal/dehydration due to poor po intake CT a/p: No left hydronephrosis. No urinary calculi. Absent right kidney. Received IV fluids Creatinine improved to 1.19 today Resolved 10/29 crea 1.1 (5) Elevated troponin: Plan: Mostly due to A. fib Denies any chest pain IV heparin drip transition to Eliquis Continue metoprolol 25 twice daily 12/8 rate controlled continue Metoprolol and Eliquis (6) New onset a-fib: Plan: no prior hx ecg on admission and repeat reveal afib Rate control [id number] 3 (age, hx of HTN) Continue Eliquis. Checked the [facility] and it will be $47 for 30-day supply Cardiology on board Continue metoprolol tartrate 25 twice daily 12/8 per above (7) HTN (hypertension): Plan: Lisinopril held due to MRARY and low BP Continue Amlodipine at bedtime Continue monitor BP (8) Depression: Plan: continue zoloft Plan: DVT ppx:on Eliquis FULL CODE Admission and Anticipated Discharge Date Admission Date: October 25, 2021 Subjective ff up for COVID pneumonia, with hypoxia etc seen resting in bed, not in distress on 8 L NC awake, alert when asked how he is doing, patient shakes head when asked to elaborate, patient states i do not know refusing pills per RN difficult to obtain ROS as patient not cooperative but he does not appear uncomfortable, not in distress Review of Systems Review of Systems: all noted and negative except for above Physical Exam Physical Exam: General- not in distress, speaks in sentences with no effort or accessory muscle use Eyes- anicteric Neck- no JVD Lungs- mild rhonchi BL no wheezing good air entry BL Heart- normal rate, regular rhythm; no murmurs Abdomen- normal bowel sounds, nondistended, soft, nontender Extremities- no pretibial edema, no calf tenderness Neuro- alert, oriented x 3; no gross focal neurologic deficits Skin- warm & dry Results & Data Results & Data ([facility]) Vital Signs (Past 12 Hours) Vital Signs Temp Pulse Pulse Resp BP Pulse Ox 10/29/21 15:31 36.8 C 82 20 128/82 90 10/29/21 14:24 93 H 10/29/21 11:41 37.0 C 83 20 127/70 88 L 10/29/21 07:58 36.8 C 91 H 20 134/83 89 L 10/29/21 06:19 81 all noted and reviewed including below
[2021-10-29] MEDS: amLODIPine BESYLATE 5 MG TAB PO SCH (20:48)
[2021-10-30 02:08] LABS: Appearance Urine Clear (Clear); Bacteria Urine Automated Negative (Negative); Bilirubin Urine Negative (Negative); Blood Urine 1+ (Negative); Color Urine Yellow; Glucose Urine UA Negative (Negative); Ketones Urine Negative (Negative); Leukocyte Esterase Urine Negative (Negative); Nitrite Urine Negative (Negative); Protein Urine 2+ (Negative); RBC Urine Automated 0-4 /hpf (0-4); Specific Gravity Urine 1.022 (1.000-1.030); Urobilinogen Urine Negative (Negative); pH Urine 5.5 (4.5-7.5)
[2021-10-30 07:42] LABS: Hemoglobin 16.1 g/dL (14.0-18.0); Immature Granulocytes # (auto) 0.05 K/uL (0.00-0.02); Immature Granulocytes % (auto) 0.5 %; Lymphocytes # (auto) 0.61 K/uL (1.2-3.4); Lymphocytes % (auto) 5.8 %; Mean Corpuscular Hemoglobin 30.8 pg (25-34); Mean Corpuscular Hgb Conc 34.3 g/dL (32-36); Mean Platelet Volume 8.6 fL (7.4-10.4); Monocytes # (auto) 0.56 K/uL (0.11-0.59); Monocytes % (auto) 5.3 %; Neutrophils # (auto) 9.32 K/uL (1.4-6.5); Neutrophils % (auto) 88.4 %; Platelet Count 204 K/uL (130-400); RDW Standard Deviation 42.6 fL (36.4-46.3); Red Blood Count 5.22 M/uL (4.7-6.1); White Blood Count 10.54 K/uL (4.8-10.8)
[2021-10-30 08:10] LABS: Albumin Level 2.3 gm/dl (3.4-5.0); BUN Creatinine Ratio 26.9 (10-20); Bilirubin Direct 0.2 mg/dl (0-0.2); Calcium 8.3 mg/dl (8.5-10.1); Creatinine Clr Calc Pharmacy 53.6 ml/min; Est GFR (African American) 73.3 ml/min; Est GFR (Non-African American) 63.2 ml/min; Potassium 3.9 mmol/L (3.5-5.1)
[2021-10-30 08:13] LABS: Bilirubin,Total 1.3 mg/dl (0.2-1); Total Protein 6.2 gm/dl (6.4-8.2)
[2021-10-30] MEDS: dexAMETHasone 6 MG in SYRINGE 0 ML IV SCH (09:21)
[2021-10-30] MEDS: APIXABAN 2.5 MG TAB PO SCH ×2 (09:23→20:48)
[2021-10-30] MEDS: METOPROLOL TARTRATE 25 MG TAB PO SCH ×2 (09:23→20:49)
[2021-10-30] MEDS: DOXYCYCLINE HYCLATE 100 MG CAP PO SCH ×2 (09:24→20:49)
[2021-10-30] MEDS: SERTRALINE HCL 50 MG TABLET PO SCH (09:32)
[2021-10-30] MEDS: BENZONATATE 100 MG CAPSULE PO SCH ×3 (09:32→20:49)
[2021-10-30] MEDS ORDERED: REMDESIVIR 200 MG in SODIUM CHLORIDE 0.9% 210 ML IV ONE (11:00)
[2021-10-30] MEDS ORDERED: SODIUM CHLORIDE 0.9% 10ML FLUSH IV ONE (11:00)
[2021-10-30] MEDS: cefTRIAXone SODIUM 1,000 MG in DEXTROSE 5% 50 ML IV SCH (16:31)
--- NOTE | 2021-10-30 19:25 | Hospitalist Progress Note ---
Date of Service October 30, 2021 delayed entry date of service noted above Assessment & Plan (1) SIRS (systemic inflammatory response syndrome): (2) Hypoxia: (3) Pneumonia due to COVID-19 virus: Plan: per Dr. Blanchard's notes with addendum: Pt initially met SIRS criteria on admission 2/2 to hypotension and tachycardia Procalcitonin elevated on admission Lactic acid WNL, afebrile and WBC WNL Received cefepime in the ER Continue antibiotic with Rocephin and doxy Blood culture no growth Procalcitonin trending down at 0.69 Continue monitor closely COVID -19 PNA Hypoxia Unvaccinated for COVID-19 CT showed ground glass opacities within the lower lungs with interlobular septal thickening within the left lower lobe. Repeat chest x-ray showed Mildly progressed mid to lower lung zone pulmonary opacities suggestive of multifocal pneumonia. Continue IV Dexamethasone 6mg daily He does not meet criteria for remdesivir given renal fxn Continue IV rocephin and oral doxycycline for superimposed bacterial infection due to elevated procalcitonin pulmonary toilet with nebs, spirometry and flutter valve Currently on 6 L nasal cannula Continue to encourage patient for self proning Continue monitor closely 10/30 Hospital day 5 on 6 L NC CXR Mildly progressed mid to lower lung zone pulmonary opacities suggestive of multifocal pneumonia. Discussed with patient's daughter Vernell over the phone in detail at length Kidney function has returned to baseline Discussed remdesivir, including benefits and risks, including patient's solitary kidney Patient's daughter agreeable to start remdesivir day #1 continue Decadron continue Ceftri + Doxy Monitor renal function and LFTs Continue flutter valve, incentive spirometry (4) MARRY (acute kidney injury): Plan: Creatinine on admission 2.27 likely in setting of pre renal/dehydration due to poor po intake CT a/p: No left hydronephrosis. No urinary calculi. Absent right kidney. Received IV fluids Creatinine improved to 1.19 today Resolved 10/30 crea 1.0 (5) Elevated troponin: Plan: Mostly due to A. fib Denies any chest pain IV heparin drip transition to Eliquis Continue metoprolol 25 twice daily 10/30 rate controlled continue Metoprolol and Eliquis (6) New onset a-fib: Plan: no prior hx ecg on admission and repeat reveal afib Rate control [id number] 3 (age, hx of HTN) Continue Eliquis. Checked the [facility] and it will be $47 for 30-day supply Cardiology on board Continue metoprolol tartrate 25 twice daily 10/30 per above (7) HTN (hypertension): Plan: Lisinopril held due to MARRY and low BP Continue Amlodipine at bedtime Continue monitor BP (8) Depression: Plan: continue zoloft Plan: DVT ppx:on Eliquis FULL CODE Admission and Anticipated Discharge Date Admission Date: October 25, 2021 Subjective Follow-up for hypoxic respiratory failure, COVID-19 pneumonia, etc. Seen resting in bed, comfortable on 6 L o2 Appears more alert, pleasant, brighter States he feels slightly better No active shortness of breath, chest pain, fevers, dizziness No other symptoms Review of Systems Review of Systems: all noted and negative except for above Physical Exam Physical Exam: General- oriented x 2, not in distress, speaks in sentences with no effort or accessory muscle use Eyes- anicteric Neck- no JVD Lungs-mild rhonchi bilaterally No wheezing Heart- normal rate, regular rhythm; no murmurs Abdomen- normal bowel sounds, nondistended, soft, nontender Extremities- no pretibial edema, no calf tenderness Neuro- alert, oriented x 2; no gross focal neurologic deficits Skin- warm & dry Results & Data Results & Data ([facility]) Vital Signs (Past 12 Hours) Vital Signs Temp Pulse Pulse Resp BP Pulse Ox 10/30/21 15:02 36.6 C 82 20 137/88 93 10/30/21 14:26 76 10/30/21 11:24 36.6 C 84 20 147/89 H 10/30/21 08:30 36.9 C 82 20 139/89 94 all noted and reviewed including below
[2021-10-30] MEDS: amLODIPine BESYLATE 5 MG TAB PO SCH (20:47)
[2021-10-31 07:15] LABS: Eosinophils # (auto) 0.02 K/uL (0-0.5); Eosinophils % (auto) 0.2 %; Hematocrit (blood only) 48.2 % (42-52); Hemoglobin 16.4 g/dL (14.0-18.0); Immature Granulocytes # (auto) 0.04 K/uL (0.00-0.02); Immature Granulocytes % (auto) 0.4 %; Lymphocytes # (auto) 0.98 K/uL (1.2-3.4); Lymphocytes % (auto) 10.4 %; Mean Corpuscular Hemoglobin 31.2 pg (25-34); Mean Corpuscular Volume 91.8 fL (80-100); Mean Platelet Volume 8.7 fL (7.4-10.4); Monocytes # (auto) 0.57 K/uL (0.11-0.59); Neutrophils # (auto) 7.82 K/uL (1.4-6.5); Platelet Count 231 K/uL (130-400); RDW Standard Deviation 43.8 fL (36.4-46.3); Red Blood Count 5.25 M/uL (4.7-6.1); White Blood Count 9.43 K/uL (4.8-10.8)
[2021-10-31 07:47] LABS: Albumin Level 2.3 gm/dl (3.4-5.0); BUN Creatinine Ratio 31.7 (10-20); Bilirubin Direct 0.1 mg/dl (0-0.2); Calcium 8.7 mg/dl (8.5-10.1); Est GFR (African American) 77.4 ml/min; Est GFR (Non-African American) 66.8 ml/min; Potassium 4.3 mmol/L (3.5-5.1)
[2021-10-31 07:48] LABS: Bilirubin,Total 0.9 mg/dl (0.2-1); Total Protein 6.3 gm/dl (6.4-8.2)
[2021-10-31] MEDS: METOPROLOL TARTRATE 25 MG TAB PO SCH ×2 (08:54→20:47)
[2021-10-31] MEDS: dexAMETHasone 6 MG in SYRINGE 0 ML IV SCH (08:54)
[2021-10-31] MEDS: DOXYCYCLINE HYCLATE 100 MG CAP PO SCH ×2 (08:55→20:48)
[2021-10-31] MEDS: BENZONATATE 100 MG CAPSULE PO SCH ×3 (08:55→20:48)
[2021-10-31] MEDS: SERTRALINE HCL 50 MG TABLET PO SCH (08:55)
[2021-10-31] MEDS: APIXABAN 2.5 MG TAB PO SCH ×2 (08:55→20:47)
[2021-10-31] MEDS: cefTRIAXone SODIUM 1,000 MG in DEXTROSE 5% 50 ML IV SCH (16:52)
--- NOTE | 2021-10-31 18:44 | Hospitalist Progress Note ---
Date of Service October 31, 2021 Assessment & Plan (1) SIRS (systemic inflammatory response syndrome): (2) Hypoxia: (3) Pneumonia due to COVID-19 virus: Plan: per Dr. Blanchard's notes with addendum: Pt initially met SIRS criteria on admission 2/2 to hypotension and tachycardia Procalcitonin elevated on admission Lactic acid WNL, afebrile and WBC WNL Received cefepime in the ER Continue antibiotic with Rocephin and doxy Blood culture no growth Procalcitonin trending down at 0.69 Continue monitor closely COVID -19 PNA Hypoxia Unvaccinated for COVID-19 CT showed ground glass opacities within the lower lungs with interlobular septal thickening within the left lower lobe. Repeat chest x-ray showed Mildly progressed mid to lower lung zone pulmonary opacities suggestive of multifocal pneumonia. Continue IV Dexamethasone 6mg daily He does not meet criteria for remdesivir given renal fxn Continue IV rocephin and oral doxycycline for superimposed bacterial infection due to elevated procalcitonin pulmonary toilet with nebs, spirometry and flutter valve Currently on 6 L nasal cannula Continue to encourage patient for self proning Continue monitor closely 10/31 Hospital day 6 on 6 L NC CXR Mildly progressed mid to lower lung zone pulmonary opacities suggestive of multifocal pneumonia. Discussed with patient's daughter Vernell over the phone in detail at length Over clinically the same Continue remdesivir day #2 continue Decadron continue Ceftri + Doxy Monitor renal function and LFTs Continue flutter valve, incentive spirometry (4) MARRY (acute kidney injury): Plan: Creatinine on admission 2.27 likely in setting of pre renal/dehydration due to poor po intake CT a/p: No left hydronephrosis. No urinary calculi. Absent right kidney. Received IV fluids Creatinine improved to 1.19 today Resolved / crea 1.0 (5) Elevated troponin: Plan: Mostly due to A. fib Denies any chest pain IV heparin drip transition to Eliquis Continue metoprolol 25 twice daily 10/31 rate controlled continue Metoprolol and Eliquis (6) New onset a-fib: Plan: no prior hx ecg on admission and repeat reveal afib Rate control [id number] 3 (age, hx of HTN) Continue Eliquis. Checked the [facility] and it will be $47 for 30-day supply Cardiology on board Continue metoprolol tartrate 25 twice daily 10/31 per above (7) HTN (hypertension): Plan: Lisinopril held due to MARRY and low BP Continue Amlodipine at bedtime Continue monitor BP (8) Depression: Plan: continue zoloft Plan: DVT ppx:on Eliquis FULL CODE Admission and Anticipated Discharge Date Admission Date: October 25, 2021 Subjective Follow-up for COVID-19 pneumonia hypoxic respiratory failure, etc. Seen resting in bed on 6 L of oxygen via nasal cannula States he feels about the same No active shortness of breath, chest pain No leg pain Per RN patient has been taking his medications today Appetite also good No other symptoms Review of Systems Review of Systems: all noted and negative except for above Physical Exam Physical Exam: General- oriented x 2, not in distress, speaks in sentences with no effort or accessory muscle use Eyes- anicteric Neck- no JVD Lungs-mild crackles at bases, no wheezing, good air entry bilaterally Heart- normal rate, regular rhythm; no murmurs Abdomen- normal bowel sounds, nondistended, soft, nontender Extremities- no pretibial edema, no calf tenderness Neuro- alert, oriented x2; no gross focal neurologic deficits Skin- warm & dry Results & Data Results & Data ([facility]) Vital Signs (Past 12 Hours) Vital Signs Temp Pulse Pulse Resp BP Pulse Ox 10/31/21 15:17 36.5 C 66 18 141/96 H 90 10/31/21 14:16 76 10/31/21 11:42 36.4 C L 71 19 133/89 92 10/31/21 08:03 36.7 C 75 19 144/85 H 92
[2021-10-31] MEDS: REMDESIVIR 100 MG in SODIUM CHLORIDE 0.9% 230 ML IV SCH (20:44)
[2021-10-31] MEDS: amLODIPine BESYLATE 5 MG TAB PO SCH (20:48)
[2021-10-31] MEDS: SODIUM CHLORIDE 0.9% 10ML FLUSH IV SCH (21:54)
[2021-11-01 07:00] LABS: Eosinophils # (auto) 0.05 K/uL (0-0.5); Eosinophils % (auto) 0.4 %; Hematocrit (blood only) 50.3 % (42-52); Immature Granulocytes # (auto) 0.07 K/uL (0.00-0.02); Immature Granulocytes % (auto) 0.6 %; Lymphocytes # (auto) 1.37 K/uL (1.2-3.4); Lymphocytes % (auto) 11.3 %; Mean Corpuscular Hemoglobin 31.3 pg (25-34); Mean Corpuscular Hgb Conc 33.8 g/dL (32-36); Mean Corpuscular Volume 92.5 fL (80-100); Mean Platelet Volume 8.6 fL (7.4-10.4); Monocytes # (auto) 0.32 K/uL (0.11-0.59); Monocytes % (auto) 2.6 %; Neutrophils # (auto) 10.28 K/uL (1.4-6.5); Neutrophils % (auto) 85.1 %; Platelet Count 293 K/uL (130-400); RDW Coefficient of Variation 13.1 % (11.5-14.5); RDW Standard Deviation 44.5 fL (36.4-46.3); Red Blood Count 5.44 M/uL (4.7-6.1); White Blood Count 12.09 K/uL (4.8-10.8)
[2021-11-01 07:29] LABS: Albumin Level 2.3 gm/dl (3.4-5.0); BUN Creatinine Ratio 29.7 (10-20); Bilirubin Direct 0.1 mg/dl (0-0.2); Calcium 8.8 mg/dl (8.5-10.1); Creatinine Clr Calc Pharmacy 49.1 ml/min; Est GFR (African American) 64.9 ml/min; Potassium 4.3 mmol/L (3.5-5.1)
[2021-11-01 07:32] LABS: Bilirubin,Total 0.7 mg/dl (0.2-1); Total Protein 6.5 gm/dl (6.4-8.2)
[2021-11-01] MEDS: BENZONATATE 100 MG CAPSULE PO SCH ×3 (08:28→20:47)
[2021-11-01] MEDS: dexAMETHasone 6 MG in SYRINGE 0 ML IV SCH (08:28)
[2021-11-01] MEDS: DOXYCYCLINE HYCLATE 100 MG CAP PO SCH (08:28)
[2021-11-01] MEDS: METOPROLOL TARTRATE 25 MG TAB PO SCH ×2 (08:29→20:46)
[2021-11-01] MEDS: SERTRALINE HCL 50 MG TABLET PO SCH (08:29)
[2021-11-01] MEDS: APIXABAN 2.5 MG TAB PO SCH ×2 (08:29→20:46)
--- NOTE | 2021-11-01 10:07 | XRay Report ---
XR chest 1V portable CLINICAL HISTORY: Follow-up bilateral interstitial and alveolar opacities. Covid positive. COMPARISON STUDY: 10/27/2021 TECHNIQUE: 1 view of the chest FINDINGS: Single frontal view of the chest demonstrates the cardiomediastinal silhouette to be within normal li mits. Compared to previous examination, there has been slight worsening of bilateral interstitial and alveolar opacities characteristic of a viral type pneumonitis and Covid pneumonia. There is no evide nce for pleural effusion. There is no evidence for vascular congestion. There is no acute osseous pat hology. IMPRESSION: Slight interval worsening of bilateral interstitial and alveolar opacities characteristic of Covid pneumonia. ACT 112: Negative or not required by law. Electronically signed by: Yusuf Shearer M.D. 11/01/2021 10:06 AM
--- NOTE | 2021-11-01 19:21 | Hospitalist Progress Note ---
Date of Service November 01, 2021 Assessment & Plan (1) SIRS (systemic inflammatory response syndrome): (2) Hypoxia: (3) Pneumonia due to COVID-19 virus: Plan: per Dr. Blanchard's notes with addendum: Pt initially met SIRS criteria on admission 2/2 to hypotension and tachycardia Procalcitonin elevated on admission Lactic acid WNL, afebrile and WBC WNL Received cefepime in the ER Continue antibiotic with Rocephin and doxy Blood culture no growth Procalcitonin trending down at 0.69 Continue monitor closely COVID -19 PNA Hypoxia Unvaccinated for COVID-19 CT showed ground glass opacities within the lower lungs with interlobular septal thickening within the left lower lobe. Repeat chest x-ray showed Mildly progressed mid to lower lung zone pulmonary opacities suggestive of multifocal pneumonia. Continue IV Dexamethasone 6mg daily He does not meet criteria for remdesivir given renal fxn Continue IV rocephin and oral doxycycline for superimposed bacterial infection due to elevated procalcitonin pulmonary toilet with nebs, spirometry and flutter valve Currently on 6 L nasal cannula Continue to encourage patient for self proning Continue monitor closely CXR Mildly progressed mid to lower lung zone pulmonary opacities suggestive of multifocal pneumonia. 11/01 Hospital day 7 on 4-6 L oxymask Continue remdesivir day #3 continue Decadron Completed 7-day course of Ceftri + Doxy Monitor renal function and LFTs Continue flutter valve, incentive spirometry (4) MARRY (acute kidney injury): Plan: Creatinine on admission 2.27 likely in setting of pre renal/dehydration due to poor po intake CT a/p: No left hydronephrosis. No urinary calculi. Absent right kidney. Received IV fluids Resolved 11/01 crea 1.0 (5) Elevated troponin: Plan: Mostly due to A. fib Denies any chest pain IV heparin drip transition to Eliquis Continue metoprolol 25 twice daily rate controlled continue Metoprolol and Eliquis (6) New onset a-fib: Plan: no prior hx ecg on admission and repeat reveal afib Rate control [id number] 3 (age, hx of HTN) Continue Eliquis. Checked the [facility] and it will be $47 for 30-day supply Cardiology on board Continue metoprolol tartrate 25 twice daily (7) HTN (hypertension): Plan: Lisinopril held due to MARRY and low BP Continue Amlodipine at bedtime Continue monitor BP (8) Depression: Plan: continue zoloft Plan: DVT ppx:on Eliquis FULL CODE Admission and Anticipated Discharge Date Admission Date: October 25, 2021 Subjective Follow-up for acute hypoxic respiratory failure, COVID-19 pneumonia, etc. seen resting in bed, comfortable, on 4L oxymask states he feels ok overall breathing is ok no chest pain, dyspnea, palpitations, dizziness no nausea/vomiting, abdominal pain no other symptoms Review of Systems Review of Systems: all noted and negative except for above Physical Exam Physical Exam: General- oriented x 2, not in distress, speaks in sentences with no effort or accessory muscle use Eyes- anicteric Neck- no JVD Lungs- mild crackles at the bases Heart- normal rate, regular rhythm; no murmurs Abdomen- normal bowel sounds, nondistended, soft, nontender Extremities- no pretibial edema, no calf tenderness Neuro- alert, oriented x 2; no gross focal neurologic deficits Skin- warm & dry Results & Data Results & Data ([facility]) Vital Signs (Past 12 Hours) Vital Signs Temp Pulse Pulse Resp BP Pulse Ox 11/01/21 18:42 36.4 C L 67 18 112/71 93 11/01/21 16:13 36.5 C 74 18 115/81 91 11/01/21 14:19 73 11/01/21 12:45 20 96 11/01/21 11:39 36.4 C L 72 18 135/90 95 11/01/21 07:48 73 all noted and reviewed including below
[2021-11-01] MEDS: REMDESIVIR 100 MG in SODIUM CHLORIDE 0.9% 230 ML IV SCH (20:26)
[2021-11-01] MEDS: amLODIPine BESYLATE 5 MG TAB PO SCH (20:46)
[2021-11-01] MEDS: SODIUM CHLORIDE 0.9% 10ML FLUSH IV SCH (22:00)
[2021-11-02] MEDS: dexAMETHasone 6 MG in SYRINGE 0 ML IV SCH (08:17)
[2021-11-02] MEDS: APIXABAN 2.5 MG TAB PO SCH ×2 (08:17→20:03)
[2021-11-02] MEDS: METOPROLOL TARTRATE 25 MG TAB PO SCH ×2 (08:17→20:03)
[2021-11-02] MEDS: BENZONATATE 100 MG CAPSULE PO SCH ×3 (08:17→20:03)
[2021-11-02] MEDS: SERTRALINE HCL 50 MG TABLET PO SCH (08:17)
[2021-11-02 08:45] LABS: BUN Creatinine Ratio 33.2 (10-20); Calcium 8.5 mg/dl (8.5-10.1); Est GFR (African American) 77.4 ml/min; Est GFR (Non-African American) 66.8 ml/min
[2021-11-02 08:48] LABS: Bilirubin Direct 0.1 mg/dl (0-0.2); Bilirubin,Total 0.7 mg/dl (0.2-1); Total Protein 5.6 gm/dl (6.4-8.2)
--- NOTE | 2021-11-02 13:34 | Hospitalist Progress Note ---
Date of Service November 02, 2021 Assessment & Plan (1) SIRS (systemic inflammatory response syndrome): (2) Hypoxia: (3) Pneumonia due to COVID-19 virus: Plan: per Dr. Blanchard's notes with addendum: Pt initially met SIRS criteria on admission 2/2 to hypotension and tachycardia Procalcitonin elevated on admission Lactic acid WNL, afebrile and WBC WNL Received cefepime in the ER Continue antibiotic with Rocephin and doxy Blood culture no growth Procalcitonin trending down at 0.69 Continue monitor closely COVID -19 PNA Hypoxia Unvaccinated for COVID-19 CT showed ground glass opacities within the lower lungs with interlobular septal thickening within the left lower lobe. Repeat chest x-ray showed Mildly progressed mid to lower lung zone pulmonary opacities suggestive of multifocal pneumonia. Continue IV Dexamethasone 6mg daily He does not meet criteria for remdesivir given renal fxn Continue IV rocephin and oral doxycycline for superimposed bacterial infection due to elevated procalcitonin pulmonary toilet with nebs, spirometry and flutter valve Currently on 6 L nasal cannula Continue to encourage patient for self proning Continue monitor closely CXR Mildly progressed mid to lower lung zone pulmonary opacities suggestive of multifocal pneumonia. 11/02 Hospital day 8 on 4-6 L oxymask Continue remdesivir day #4/5 continue Decadron Completed 7-day course of Ceftri + Doxy Monitor renal function and LFTs Continue flutter valve, incentive spirometry (4) MARRY (acute kidney injury): Plan: Creatinine on admission 2.27 likely in setting of pre renal/dehydration due to poor po intake CT a/p: No left hydronephrosis. No urinary calculi. Absent right kidney. Received IV fluids Resolved crea 1.0 (5) Elevated troponin: Plan: Mostly due to A. fib Denies any chest pain IV heparin drip transition to Eliquis Continue metoprolol 25 twice daily rate controlled continue Metoprolol and Eliquis (6) New onset a-fib: Plan: no prior hx ecg on admission and repeat reveal afib Rate control [id number] 3 (age, hx of HTN) Continue Eliquis. Checked the [facility] and it will be $47 for 30-day supply Cardiology on board Continue metoprolol tartrate 25 twice daily (7) HTN (hypertension): Plan: Lisinopril held due to MARRY and low BP Continue Amlodipine at bedtime Continue monitor BP (8) Depression: Plan: continue zoloft Plan: DVT ppx:on Eliquis FULL CODE Admission and Anticipated Discharge Date Admission Date: October 25, 2021 Subjective Follow-up for acute respiratory failure, hypoxia, COVID-19 pneumonia, etc. Seen sitting up in bedside chair, comfortable, not in distress, conversant Having lunch States he feels okay overall Denies shortness of breath, chest pain, palpitations, dizziness abdominal pain, fevers or chills No leg pain No other symptoms Review of Systems Review of Systems: all noted and negative except for above Physical Exam Physical Exam: General- oriented , not in distress, speaks in sentences with no effort or accessory muscle use Eyes- anicteric Neck- no JVD Lungs-mild rales at the bases, no wheezing, good air entry bilaterally Heart- normal rate, regular rhythm; no murmurs Abdomen- normal bowel sounds, nondistended, soft, nontender Extremities- no pretibial edema, no calf tenderness Neuro- alert, oriented ; no gross focal neurologic deficits Skin- warm & dry Results & Data Results & Data ([facility]) Vital Signs (Past 12 Hours) Vital Signs Temp Pulse Pulse Resp BP Pulse Ox 11/02/21 11:54 36.4 C L 74 20 120/76 85 L 11/02/21 10:09 18 93 11/02/21 07:13 36.7 C 67 18 115/69 96 11/02/21 07:10 81 11/02/21 03:32 36.3 C L 64 18 122/79 92 all noted and reviewed including below
[2021-11-02] MEDS: amLODIPine BESYLATE 5 MG TAB PO SCH (20:04)
[2021-11-02] MEDS: REMDESIVIR 100 MG in SODIUM CHLORIDE 0.9% 230 ML IV SCH (20:08)
[2021-11-02] MEDS: SODIUM CHLORIDE 0.9% 10ML FLUSH IV SCH (21:22)
[2021-11-03 08:07] LABS: Albumin Level 2.1 gm/dl (3.4-5.0); BUN Creatinine Ratio 30.3 (10-20); Bilirubin Direct 0.1 mg/dl (0-0.2); Calcium 8.2 mg/dl (8.5-10.1); Creatinine Clr Calc Pharmacy 57.8 ml/min; Est GFR (African American) 77.4 ml/min; Est GFR (Non-African American) 66.8 ml/min
[2021-11-03 08:10] LABS: Bilirubin,Total 0.9 mg/dl (0.2-1); Total Protein 5.7 gm/dl (6.4-8.2)
[2021-11-03] MEDS: BENZONATATE 100 MG CAPSULE PO SCH ×3 (08:10→21:26)
[2021-11-03] MEDS: METOPROLOL TARTRATE 25 MG TAB PO SCH ×2 (08:10→21:26)
[2021-11-03] MEDS: APIXABAN 2.5 MG TAB PO SCH (08:11)
[2021-11-03] MEDS: SERTRALINE HCL 50 MG TABLET PO SCH (08:12)
[2021-11-03] MEDS: dexAMETHasone 6 MG in SYRINGE 0 ML IV SCH (08:12)
[2021-11-03 08:15] LABS: Potassium 4.2 mmol/L (3.5-5.1)
--- NOTE | 2021-11-03 11:39 | Cardiology Progress Note ---
Date of Service November 03, 2021 Assessment & Plan (1) COVID-19: (2) New onset a-fib: Plan: Newly recognized atrial fibrillation in the setting of SARS-CoV-2 pneumonia. Oxygen supplementation transiently increased overnight, however, reduced to 4.5 L/min (near baseline for current hospitalization Telemetry reveals rate controlled atrial fibrillation. Continue metoprolol tartrate and apixaban. Per prior cardiology note: Chemo cost $47 for 30 day supply. Plan for outpatient echo after he completes his course of self isolation. Admission and Anticipated Discharge Date Admission Date: October 25, 2021 Subjective Patient seen and examined the bedside. Telemetry reviewed demonstrating atrial fibrillation with controlled ventricular response. No significant pauses or bradycardia recorded. Supplemental oxygen transiently titrated to 9 L/min however back to 4.5 L currently. Patient denies shortness of breath. Requesting discharge. No tachypnea or cough. Denies orthopnea, PND, or edema. Review of Systems Review of Systems: All systems reviewed & are unremarkable except as noted in Subjective Physical Exam Constitutional: well developed and well nourished; no acute distress Respiratory: normal respiratory effort; no respiratory distress and no labored breathing Auscultation: + crackles (Bilateral); no rhonchi and no wheezes Cardiovascular: Rate/Rhythm: + irregularly irregular Heart Sounds: normal S1 and normal S2; no murmur Vessels: no JVD and no carotid bruit Extremities: no edema Gastrointestinal (Abdomen): Inspection/Auscultation: abdomen normal to inspection and normal bowel sounds; abdomen not distended Percussion/Palpation: abdomen soft; abdomen nontender, no guarding and abdomen not rigid Neurologic: CN's II-XI intact bilaterally and moves all extremities Psychiatric: A+Ox3, euthymic affect Results & Data ([facility]) Vital Signs (Past 12 Hours) Vital Signs Temp Pulse Pulse Resp BP BP Pulse Ox 11/03/21 11:16 36.5 C 82 16 112/77 92 11/03/21 08:00 67 11/03/21 07:40 36.6 C 71 24 107/72 91 11/03/21 05:35 61 11/03/21 02:38 36.6 C 82 20 137/85 88 L
--- NOTE | 2021-11-03 16:52 | Hospitalist Progress Note ---
Date of Service November 03, 2021 Assessment & Plan (1) SIRS (systemic inflammatory response syndrome): (2) Hypoxia: (3) Pneumonia due to COVID-19 virus: Plan: per Dr. Blanchard's notes with addendum: Pt initially met SIRS criteria on admission 2/2 to hypotension and tachycardia Procalcitonin elevated on admission Lactic acid WNL, afebrile and WBC WNL Received cefepime in the ER Continue antibiotic with Rocephin and doxy Blood culture no growth Procalcitonin trending down at 0.69 Continue monitor closely COVID -19 PNA Hypoxia Unvaccinated for COVID-19 CT showed ground glass opacities within the lower lungs with interlobular septal thickening within the left lower lobe. Repeat chest x-ray showed Mildly progressed mid to lower lung zone pulmonary opacities suggestive of multifocal pneumonia. Continue IV Dexamethasone 6mg daily He does not meet criteria for remdesivir given renal fxn Continue IV rocephin and oral doxycycline for superimposed bacterial infection due to elevated procalcitonin pulmonary toilet with nebs, spirometry and flutter valve Currently on 6 L nasal cannula Continue to encourage patient for self proning Continue monitor closely CXR Mildly progressed mid to lower lung zone pulmonary opacities suggestive of multifocal pneumonia. 11/03/2021 Hospital day 9 Currently back on oxygen mask 3 L Continue remdesivir day #5/5 continue Decadron IV day 9/10 Completed 7-day course of Ceftri + Doxy Monitor renal function and LFTs Continue flutter valve, incentive spirometry Constipation No BM since 11/01/2021 Patient declining oral laxatives Tapwater enema ordered (4) MARRY (acute kidney injury): Plan: Creatinine on admission 2.27 likely in setting of pre renal/dehydration due to poor po intake CT a/p: No left hydronephrosis. No urinary calculi. Absent right kidney. Received IV fluids Resolved crea 1.0 (5) Elevated troponin: Plan: Mostly due to A. fib Denies any chest pain IV heparin drip transition to Eliquis Continue metoprolol 25 twice daily rate controlled continue Metoprolol and Eliquis (6) New onset a-fib: Plan: no prior hx ecg on admission and repeat reveal afib Rate control [id number] 3 (age, hx of HTN) Continue Eliquis. Checked the [facility] and it will be $47 for 30-day supply Cardiology on board Continue metoprolol tartrate 25 twice daily (7) HTN (hypertension): Plan: Lisinopril held due to MARRY and low BP Continue Amlodipine at bedtime Continue monitor BP (8) Depression: Plan: continue zoloft Plan: DVT ppx:on Eliquis FULL CODE Admission and Anticipated Discharge Date Admission Date: October 25, 2021 Subjective Follow-up for acute hypoxic respiratory failure, COVID-19 pneumonia, etc. Seen resting in bed, awake and alert, comfortable, 6 L oxygen mask States he feels fine overall Main complaint is constipation, no abdominal pain, nausea vomiting, requesting for enema Denies shortness of breath, palpitations, chest pain, dizziness No leg pain No other symptoms Review of Systems Review of Systems: all noted and negative except for above Physical Exam Physical Exam: General- oriented x2, not in distress, speaks in sentences with no effort or accessory muscle use Eyes- anicteric Neck- no JVD Lungs-positive mild crackles bilaterally, no wheezing Heart- normal rate, regular rhythm; no murmurs Abdomen- normal bowel sounds, nondistended, soft, nontender Extremities- no pretibial edema, no calf tenderness Neuro- alert, oriented x 2; no new gross focal neurologic deficits Skin- warm & dry Results & Data Results & Data ([facility]) Vital Signs (Past 12 Hours) Vital Signs Temp Pulse Pulse Resp BP Pulse Ox 11/03/21 16:25 36.8 C 85 24 121/69 83 L 11/03/21 11:16 36.5 C 82 16 112/77 92 11/03/21 08:00 67 11/03/21 07:40 36.6 C 71 24 107/72 91 11/03/21 05:35 61 all noted and reviewed including below
[2021-11-03] MEDS: REMDESIVIR 100 MG in SODIUM CHLORIDE 0.9% 230 ML IV SCH (20:11)
[2021-11-03] MEDS: SODIUM CHLORIDE 0.9% 10ML FLUSH IV SCH (21:20)
[2021-11-03] MEDS: APIXABAN 5 MG TABLET PO SCH (21:25)
[2021-11-03] MEDS: amLODIPine BESYLATE 5 MG TAB PO SCH (21:26)
[2021-11-04 07:33] LABS: Calcium 8.2 mg/dl (8.5-10.1); Creatinine Clr Calc Pharmacy 58.3 ml/min; Est GFR (African American) 79.2 ml/min; Est GFR (Non-African American) 68.3 ml/min; Potassium 4.2 mmol/L (3.5-5.1)
[2021-11-04] MEDS: dexAMETHasone 6 MG in SYRINGE 0 ML IV SCH (07:47)
[2021-11-04] MEDS: SERTRALINE HCL 50 MG TABLET PO SCH (07:48)
[2021-11-04] MEDS: METOPROLOL TARTRATE 25 MG TAB PO SCH ×2 (07:48→21:33)
[2021-11-04] MEDS: APIXABAN 5 MG TABLET PO SCH ×2 (07:48→21:33)
[2021-11-04] MEDS: BENZONATATE 100 MG CAPSULE PO SCH ×3 (07:48→21:32)
--- NOTE | 2021-11-04 09:27 | XRay Report ---
XR chest 1V portable HISTORY: 76 years-old Male ff up covid pneumonia acute shortness of breath with history of viral pne umonia COMPARISON: Chest radiograph 11/01/2021. TECHNIQUE: Portable AP view of the chest FINDINGS: Cardiac silhouette is enlarged. Calcified plaque of the thoracic aorta. No pneumothorax or large pleu ral effusion. Interstitial coarsening with bilateral airspace opacities, mildly progressed from prior . Degenerative changes of the shoulders and spine. IMPRESSION: Mildly progressed bilateral opacities compatible with viral pneumonia. ACT 112: Negative or not required by law. The above report was generated using voice recognition software. It may contain grammatical, syntax o r spelling errors. Electronically signed by: Geoffrey Nguyễn M.D. 11/04/2021 9:26 AM
[2021-11-04] MEDS ORDERED: FUROSEMIDE INJ 20 MG/2 ML VIAL IV ONE (10:50)
--- NOTE | 2021-11-04 16:28 | Hospitalist Progress Note ---
Date of Service November 04, 2021 Assessment & Plan (1) SIRS (systemic inflammatory response syndrome): (2) Hypoxia: (3) Pneumonia due to COVID-19 virus: Plan: per Dr. Blanchard's notes with addendum: Pt initially met SIRS criteria on admission 2/2 to hypotension and tachycardia Procalcitonin elevated on admission Lactic acid WNL, afebrile and WBC WNL Received cefepime in the ER Continue antibiotic with Rocephin and doxy Blood culture no growth Procalcitonin trending down at 0.69 Continue monitor closely COVID -19 PNA Hypoxia Unvaccinated for COVID-19 CT showed ground glass opacities within the lower lungs with interlobular septal thickening within the left lower lobe. Repeat chest x-ray showed Mildly progressed mid to lower lung zone pulmonary opacities suggestive of multifocal pneumonia. Continue IV Dexamethasone 6mg daily He does not meet criteria for remdesivir given renal fxn Continue IV rocephin and oral doxycycline for superimposed bacterial infection due to elevated procalcitonin pulmonary toilet with nebs, spirometry and flutter valve Currently on 6 L nasal cannula Continue to encourage patient for self proning Continue monitor closely CXR Mildly progressed mid to lower lung zone pulmonary opacities suggestive of multifocal pneumonia. 11/04/2021 Hospital day 10 Currently back on oxygen mask , now at 10 L completed remdesivir day #5/5 continue Decadron IV day 10/ Completed 7-day course of Ceftri + Doxy repeat CXR: mild progression of pneumonia Lasix 20mg IV given caution on diuresis given solitary kidney Monitor renal function and LFTs Continue flutter valve, incentive spirometry Constipation No BM since 11/01/2021 Patient declining oral laxatives Tapwater enema ordered: (+) BM (4) MARRY (acute kidney injury): Plan: Creatinine on admission 2.27 likely in setting of pre renal/dehydration due to poor po intake CT a/p: No left hydronephrosis. No urinary calculi. Absent right kidney. Received IV fluids Resolved crea 1.0 (5) Elevated troponin: Plan: Mostly due to A. fib Denies any chest pain IV heparin drip transition to Eliquis Continue metoprolol 25 twice daily rate controlled continue Metoprolol and Eliquis (6) New onset a-fib: Plan: no prior hx ecg on admission and repeat reveal afib Rate control [id number] 3 (age, hx of HTN) Continue Eliquis. Checked the [facility] and it will be $47 for 30-day supply Cardiology on board Continue metoprolol tartrate 25 twice daily (7) HTN (hypertension): Plan: Lisinopril held due to MARRY and low BP Continue Amlodipine at bedtime Continue monitor BP (8) Depression: Plan: continue zoloft Plan: DVT ppx:on Eliquis FULL CODE Admission and Anticipated Discharge Date Admission Date: October 25, 2021 Subjective Follow-up for acute hypoxic respiratory failure, COVID-19 pneumonia, etc. seen resting in bed, comfortable, on oxygen mask 10 L No signs of distress States his breathing is fine, no cough No abdominal pain Positive BM yesterday States he does not want to take anymore medications, discussed with patient, strongly encouraged to take all his medications as doing otherwise can result to medical deterioration including stroke, etc. Review of Systems Review of Systems: all noted and negative except for above Physical Exam Physical Exam: General- oriented x 2, not in distress, speaks in sentences with no effort or accessory muscle use Eyes- anicteric Neck- no JVD Lungs-mild rales at the bases, no wheezing Heart- normal rate, regular rhythm; no murmurs Abdomen- normal bowel sounds, nondistended, soft, nontender Extremities- no pretibial edema, no calf tenderness Neuro- alert, oriented x 2; no new gross focal neurologic deficits Skin- warm & dry Results & Data Results & Data ([facility]) Vital Signs (Past 12 Hours) Vital Signs Temp Pulse Resp BP Pulse Ox 11/04/21 11:10 36.4 C L 73 18 111/79 94 11/04/21 07:45 36.5 C 56 L 18 122/76 93 all noted and reviewed including below
[2021-11-04] MEDS: amLODIPine BESYLATE 5 MG TAB PO SCH (21:32)
[2021-11-05] MEDS: dexAMETHasone 6 MG in SYRINGE 0 ML IV SCH (08:23)
[2021-11-05] MEDS: METOPROLOL TARTRATE 25 MG TAB PO SCH ×2 (08:24→21:21)
[2021-11-05] MEDS: APIXABAN 5 MG TABLET PO SCH ×2 (08:24→21:21)
[2021-11-05] MEDS: SERTRALINE HCL 50 MG TABLET PO SCH (08:24)
[2021-11-05] MEDS: BENZONATATE 100 MG CAPSULE PO SCH ×3 (08:24→21:19)
[2021-11-05] MEDS: amLODIPine BESYLATE 5 MG TAB PO SCH (21:19)
--- NOTE | 2021-11-05 22:02 | Hospitalist Progress Note ---
Date of Service November 05, 2021 Assessment & Plan (1) SIRS (systemic inflammatory response syndrome): (2) Hypoxia: (3) Pneumonia due to COVID-19 virus: Plan: Pt initially met SIRS criteria on admission 2/2 to hypotension and tachycardia Procalcitonin elevated on admission Lactic acid WNL, afebrile and WBC WNL Received cefepime in the ER Continue antibiotic with Rocephin and doxy Blood culture no growth Procalcitonin trending down at 0.69 Continue monitor closely COVID -19 PNA Hypoxia Unvaccinated for COVID-19 CT showed ground glass opacities within the lower lungs with interlobular septal thickening within the left lower lobe. Repeat chest x-ray showed Mildly progressed mid to lower lung zone pulmonary opacities suggestive of multifocal pneumonia. Continue IV Dexamethasone 6mg daily He does not meet criteria for remdesivir given renal fxn Continue IV rocephin and oral doxycycline for superimposed bacterial infection due to elevated procalcitonin pulmonary toilet with nebs, spirometry and flutter valve Currently on 6 L nasal cannula Continue to encourage patient for self proning Continue monitor closely CXR Mildly progressed mid to lower lung zone pulmonary opacities suggestive of multifocal pneumonia. 11/05/2021 Hospital day 11 Currently on 4L NC Completed course of Remdesivir Will discontinue decadron since pt completed 10 days course Completed 7-day course of Ceftri + Doxy Will give low dose lasix Monitor renal function and LFTs Continue flutter valve, incentive spirometry Constipation No BM since 11/01/2021 Patient declining oral laxatives Tapwater enema ordered: (+) BM (4) MARRY (acute kidney injury): Plan: Creatinine on admission 2.27 likely in setting of pre renal/dehydration due to poor po intake CT a/p: No left hydronephrosis. No urinary calculi. Absent right kidney. Received IV fluids Resolved crea 1.0 (5) Elevated troponin: Plan: Mostly due to A. fib Denies any chest pain IV heparin drip transition to Eliquis Continue Eliquis Continue metoprolol 25 twice daily rate controlled continue Metoprolol and Eliquis (6) New onset a-fib: Plan: no prior hx ecg on admission and repeat reveal afib Rate control [id number] 3 (age, hx of HTN) Continue Eliquis. Checked the [facility] and it will be $47 for 30-day supply Cardiology on board Continue metoprolol tartrate 25 twice daily (7) HTN (hypertension): Plan: Lisinopril held due to MARRY and low BP Continue Amlodipine at bedtime Continue monitor BP (8) Depression: Plan: continue zoloft Plan: DVT ppx:on Eliquis FULL CODE Admission and Anticipated Discharge Date Admission Date: October 25, 2021 Subjective Pt was seen and examined for follow-up for hypoxic respiratory failure due to COVID-19 pneumonia Lying in bed with no acute distress Pt said that he feels much better and his appetite improves Denies any chest pain, palpitation and SOB Review of Systems Review of Systems: All systems reviewed & are unremarkable except as noted in Subjective Physical Exam Physical Exam: General- No acute distress Head- atraumatic Eyes- PERRL, EOMI, ENT- oropharynx clear Neck- supple, no JVD Lungs- +diminished BS Heart- no murmur Abdomen- normal bowel sounds, soft, nontender Extremities- no calf tenderness Neuro- alert, oriented x 3; PERRL, EOMI; no facial palsy; no dysarthria Skin- warm & dry Results & Data Results & Data ([facility]) Vital Signs (Past 12 Hours) Vital Signs Temp Pulse Resp BP BP Pulse Ox 11/05/21 19:30 36.8 C 89 18 110/75 91 11/05/21 16:00 36.8 C 85 18 112/58 L 91 11/05/21 11:31 36.4 C L 61 18 117/59 L 92 11/05/21 10:37 90
[2021-11-06] MEDS: dexAMETHasone 6 MG in SYRINGE 0 ML IV SCH (07:18)
[2021-11-06] MEDS: BENZONATATE 100 MG CAPSULE PO SCH ×3 (07:18→20:35)
[2021-11-06] MEDS: SERTRALINE HCL 50 MG TABLET PO SCH (07:18)
[2021-11-06] MEDS: METOPROLOL TARTRATE 25 MG TAB PO SCH ×2 (07:19→20:35)
[2021-11-06] MEDS: APIXABAN 5 MG TABLET PO SCH ×2 (07:19→20:35)
[2021-11-06] MEDS ORDERED: FUROSEMIDE INJ 20 MG/2 ML VIAL IV ONE ×2 (09:00)
[2021-11-06] MEDS: amLODIPine BESYLATE 5 MG TAB PO SCH (20:35)
--- NOTE | 2021-11-06 22:51 | Hospitalist Progress Note ---
Date of Service November 06, 2021 Assessment & Plan (1) SIRS (systemic inflammatory response syndrome): (2) Hypoxia: (3) Pneumonia due to COVID-19 virus: Plan: Pt initially met SIRS criteria on admission 2/2 to hypotension and tachycardia Procalcitonin elevated on admission Lactic acid WNL, afebrile and WBC WNL Received cefepime in the ER Continue antibiotic with Rocephin and doxy Blood culture no growth Procalcitonin trending down at 0.69 Continue monitor closely COVID -19 PNA Hypoxia Unvaccinated for COVID-19 CT showed ground glass opacities within the lower lungs with interlobular septal thickening within the left lower lobe. Repeat chest x-ray showed Mildly progressed mid to lower lung zone pulmonary opacities suggestive of multifocal pneumonia. Continue IV Dexamethasone 6mg daily He does not meet criteria for remdesivir given renal fxn Continue IV rocephin and oral doxycycline for superimposed bacterial infection due to elevated procalcitonin pulmonary toilet with nebs, spirometry and flutter valve Currently on 6 L nasal cannula Continue to encourage patient for self proning Continue monitor closely CXR Mildly progressed mid to lower lung zone pulmonary opacities suggestive of multifocal pneumonia. 11/06/2021 Continue 4 L nasal cannula Completed course of Remdesivir Will discontinue decadron since pt completed 10 days course Completed 7-day course of Ceftri + Doxy Will give low dose lasix Monitor renal function and LFTs Continue flutter valve, incentive spirometry Constipation No BM since 11/01/2021 Patient declining oral laxatives Tapwater enema ordered: (+) BM (4) MARRY (acute kidney injury): Plan: Creatinine on admission 2.27 likely in setting of pre renal/dehydration due to poor po intake CT a/p: No left hydronephrosis. No urinary calculi. Absent right kidney. Received IV fluids Resolved crea 1.0 (5) Elevated troponin: Plan: Mostly due to A. fib Denies any chest pain IV heparin drip transition to Eliquis Continue Eliquis Continue metoprolol 25 twice daily rate controlled continue Metoprolol and Eliquis (6) New onset a-fib: Plan: no prior hx ecg on admission and repeat reveal afib Rate control [id number] 3 (age, hx of HTN) Continue Eliquis. Checked the [facility] and it will be $47 for 30-day supply Cardiology on board Continue metoprolol tartrate 25 twice daily (7) HTN (hypertension): Plan: Lisinopril held due to MARRY and low BP Continue Amlodipine at bedtime Continue monitor BP (8) Depression: Plan: continue zoloft Plan: DVT ppx:on Eliquis FULL CODE Admission and Anticipated Discharge Date Admission Date: October 25, 2021 Subjective Pt was seen and examined for follow-up for hypoxic respiratory failure due to COVID-19 pneumonia Lying in bed with no acute distress Pt said that he feels much better and his appetite improves Denies any chest pain, palpitation and SOB Physical Exam Physical Exam: General- No acute distress Head- atraumatic Eyes- PERRL, EOMI, ENT- oropharynx clear Neck- supple, no JVD Lungs- +diminished BS Heart- no murmur Abdomen- normal bowel sounds, soft, nontender Extremities- no calf tenderness Neuro- alert, oriented x 3; PERRL, EOMI; no facial palsy; no dysarthria Skin- warm & dry Results & Data Results & Data ([facility]) Vital Signs (Past 12 Hours) Vital Signs Temp Pulse Resp BP Pulse Ox 11/06/21 20:00 36.5 C 85 18 125/80 93 11/06/21 15:14 36.8 C 69 17 105/70 93 11/06/21 11:07 36.6 C 89 18 108/67 87 L
[2021-11-07] MEDS: BENZONATATE 100 MG CAPSULE PO SCH ×3 (07:07→20:49)
[2021-11-07] MEDS: dexAMETHasone 6 MG in SYRINGE 0 ML IV SCH (07:07)
[2021-11-07] MEDS: APIXABAN 5 MG TABLET PO SCH ×2 (07:08→20:49)
[2021-11-07] MEDS: METOPROLOL TARTRATE 25 MG TAB PO SCH ×2 (07:08→20:49)
[2021-11-07] MEDS: SERTRALINE HCL 50 MG TABLET PO SCH (07:09)
[2021-11-07 11:46] LABS: BUN Creatinine Ratio 26.4 (10-20); Calcium 8.3 mg/dl (8.5-10.1); Creatinine Clr Calc Pharmacy 45.9 ml/min; Est GFR (African American) 60.7 ml/min; Est GFR (Non-African American) 52.4 ml/min; Potassium 4.2 mmol/L (3.5-5.1)
[2021-11-07] MEDS: amLODIPine BESYLATE 5 MG TAB PO SCH (20:49)
--- NOTE | 2021-11-07 22:48 | Hospitalist Progress Note ---
Date of Service November 07, 2021 Assessment & Plan (1) SIRS (systemic inflammatory response syndrome): (2) Hypoxia: (3) Pneumonia due to COVID-19 virus: Plan: Pt initially met SIRS criteria on admission 2/2 to hypotension and tachycardia Procalcitonin elevated on admission Lactic acid WNL, afebrile and WBC WNL Received cefepime in the ER Continue antibiotic with Rocephin and doxy Blood culture no growth Procalcitonin trending down at 0.69 Continue monitor closely COVID -19 PNA Hypoxia Unvaccinated for COVID-19 CT showed ground glass opacities within the lower lungs with interlobular septal thickening within the left lower lobe. Repeat chest x-ray showed Mildly progressed mid to lower lung zone pulmonary opacities suggestive of multifocal pneumonia. Continue IV Dexamethasone 6mg daily He does not meet criteria for remdesivir given renal fxn Continue IV rocephin and oral doxycycline for superimposed bacterial infection due to elevated procalcitonin pulmonary toilet with nebs, spirometry and flutter valve Currently on 6 L nasal cannula Continue to encourage patient for self proning Continue monitor closely CXR Mildly progressed mid to lower lung zone pulmonary opacities suggestive of multifocal pneumonia. 11/06/2021 Continue 4 L nasal cannula Completed course of Remdesivir Will discontinue decadron since pt completed 10 days course Completed 7-day course of Ceftri + Doxy Will give low dose lasix Monitor renal function and LFTs Continue flutter valve, incentive spirometry Constipation No BM since 11/01/2021 Patient declining oral laxatives Tapwater enema ordered: (+) BM (4) MARRY (acute kidney injury): Plan: Creatinine on admission 2.27 likely in setting of pre renal/dehydration due to poor po intake CT a/p: No left hydronephrosis. No urinary calculi. Absent right kidney. Received IV fluids Resolved (5) Elevated troponin: Plan: Mostly due to A. fib Denies any chest pain IV heparin drip transition to Eliquis Continue Eliquis Continue metoprolol 25 twice daily rate controlled continue Metoprolol and Eliquis (6) New onset a-fib: Plan: no prior hx ecg on admission and repeat reveal afib Rate control [id number] 3 (age, hx of HTN) Continue Eliquis. Checked the [facility] and it will be $47 for 30-day supply Cardiology on board Continue metoprolol tartrate 25 twice daily (7) HTN (hypertension): Plan: Lisinopril held due to MARRY and low BP Continue Amlodipine at bedtime Continue monitor BP (8) Depression: Plan: continue zoloft Plan: DVT ppx:on Eliquis FULL CODE Admission and Anticipated Discharge Date Admission Date: October 25, 2021 Subjective Pt was seen and examined for follow-up for hypoxic respiratory failure due to COVID-19 pneumonia Lying in bed with no acute distress on 4L [place] oxygen Denies any chest pain, palpitation and SOB Review of Systems Review of Systems: All systems reviewed & are unremarkable except as noted in Subjective Physical Exam Physical Exam: General- No acute distress Head- atraumatic Eyes- PERRL, EOMI, ENT- oropharynx clear Neck- supple, no JVD Lungs- +diminished BS Heart- no murmur Abdomen- normal bowel sounds, soft, nontender Extremities- no calf tenderness Neuro- alert, oriented x 3; PERRL, EOMI; no facial palsy; no dysarthria Skin- warm & dry Results & Data Results & Data ([facility]) Vital Signs (Past 12 Hours) Vital Signs Temp Pulse Pulse Resp BP Pulse Ox 11/07/21 19:41 36.7 C 78 18 111/72 95 11/07/21 17:19 97 H 11/07/21 15:41 36.4 C L 56 L 18 135/89 95 11/07/21 11:31 66 11/07/21 11:14 36.4 C L 81 18 135/89 94
[2021-11-08] MEDS: dexAMETHasone 6 MG in SYRINGE 0 ML IV SCH (09:27)
[2021-11-08] MEDS: SERTRALINE HCL 50 MG TABLET PO SCH (09:28)
[2021-11-08] MEDS: BENZONATATE 100 MG CAPSULE PO SCH ×3 (09:29→20:08)
[2021-11-08] MEDS: METOPROLOL TARTRATE 25 MG TAB PO SCH ×2 (10:28→20:08)
[2021-11-08] MEDS: APIXABAN 5 MG TABLET PO SCH ×2 (10:28→20:08)
[2021-11-08] MEDS: amLODIPine BESYLATE 5 MG TAB PO SCH (20:08)
--- NOTE | 2021-11-08 23:55 | Hospitalist Progress Note ---
Date of Service November 08, 2021 Assessment & Plan (1) SIRS (systemic inflammatory response syndrome): (2) Hypoxia: (3) Pneumonia due to COVID-19 virus: Plan: Pt initially met SIRS criteria on admission 2/2 to hypotension and tachycardia Procalcitonin elevated on admission Lactic acid WNL, afebrile and WBC WNL Received cefepime in the ER Continue antibiotic with Rocephin and doxy Blood culture no growth Procalcitonin trending down at 0.69 Continue monitor closely COVID -19 PNA Hypoxia Unvaccinated for COVID-19 CT showed ground glass opacities within the lower lungs with interlobular septal thickening within the left lower lobe. Repeat chest x-ray showed Mildly progressed mid to lower lung zone pulmonary opacities suggestive of multifocal pneumonia. Continue IV Dexamethasone 6mg daily He did not meet criteria for remdesivir given renal fx on admission Continue IV rocephin and oral doxycycline for superimposed bacterial infection due to elevated procalcitonin Completed 7-day course of Ceftri + Doxy Once creatinine improves, He was starting on Remdesivir and completed the course Will discontinue Decadron since pt completed more than 10 days course pulmonary toilet with nebs, spirometry and flutter valve Currently on 4 L nasal cannula Continue to encourage patient for self proning Continue monitor closely Constipation No BM since 11/01/2021 Patient declining oral laxatives Tapwater enema ordered: (+) BM improved (4) MARRY (acute kidney injury): Plan: Creatinine on admission 2.27 likely in setting of pre renal/dehydration due to poor po intake CT a/p: No left hydronephrosis. No urinary calculi. Absent right kidney. Received IV fluids Resolved (5) Elevated troponin: Plan: Mostly due to A. fib Denies any chest pain IV heparin drip transition to Eliquis Continue Eliquis Continue metoprolol 25 twice daily for rate controlled Continue Metoprolol and Eliquis (6) New onset a-fib: Plan: no prior hx ecg on admission and repeat reveal afib Rate control [id number] 3 (age, hx of HTN) Continue Eliquis. Checked the [facility] and it will be $47 for 30-day supply Cardiology on board Continue metoprolol tartrate 25 twice daily (7) HTN (hypertension): Plan: Lisinopril held due to MARRY and low BP Continue Amlodipine at bedtime Continue monitor BP (8) Depression: Plan: continue zoloft Plan: DVT ppx:on Eliquis FULL CODE Admission and Anticipated Discharge Date Admission Date: October 25, 2021 Subjective Pt was seen and examined for follow-up for hypoxic respiratory failure due to COVID-19 pneumonia Lying in bed with no acute distress on 4L [place] oxygen Denies any chest pain, palpitation and SOB Review of Systems Review of Systems: All systems reviewed & are unremarkable except as noted in Subjective Physical Exam Physical Exam: General- No acute distress Head- atraumatic Eyes- PERRL, EOMI, ENT- oropharynx clear Neck- supple, no JVD Lungs- +diminished BS Heart- no murmur Abdomen- normal bowel sounds, soft, nontender Extremities- no calf tenderness Neuro- alert, oriented x 3; PERRL, EOMI; no facial palsy; no dysarthria Skin- warm & dry Results & Data Results & Data ([facility]) Vital Signs (Past 12 Hours) Vital Signs Temp Pulse Pulse Resp BP Pulse Ox 11/08/21 22:58 36.4 C L 78 22 114/68 93 11/08/21 19:18 36.4 C L 78 20 120/87 95 11/08/21 15:49 36.4 C L 67 20 114/81 95 11/08/21 14:20 81 11/08/21 12:29 36.4 C L 83 22 118/76 93
[2021-11-09] MEDS: BENZONATATE 100 MG CAPSULE PO SCH ×3 (08:51→19:58)
[2021-11-09] MEDS: METOPROLOL TARTRATE 25 MG TAB PO SCH ×2 (08:51→19:58)
[2021-11-09] MEDS: SERTRALINE HCL 50 MG TABLET PO SCH (08:51)
[2021-11-09] MEDS: APIXABAN 5 MG TABLET PO SCH ×2 (08:51→19:59)
[2021-11-09] MEDS: amLODIPine BESYLATE 5 MG TAB PO SCH (19:58)
--- NOTE | 2021-11-09 23:48 | Hospitalist Progress Note ---
Date of Service November 09, 2021 Assessment & Plan (1) SIRS (systemic inflammatory response syndrome): (2) Hypoxia: (3) Pneumonia due to COVID-19 virus: Plan: Pt initially met SIRS criteria on admission 2/2 to hypotension and tachycardia Procalcitonin elevated on admission Lactic acid WNL, afebrile and WBC WNL Received cefepime in the ER Continue antibiotic with Rocephin and doxy Blood culture no growth Procalcitonin trending down at 0.69 Continue monitor closely 11/09 COVID -19 PNA Hypoxia Unvaccinated for COVID-19 CT showed ground glass opacities within the lower lungs with interlobular septal thickening within the left lower lobe. Repeat chest x-ray showed Mildly progressed mid to lower lung zone pulmonary opacities suggestive of multifocal pneumonia. Continue IV Dexamethasone 6mg daily He did not meet criteria for remdesivir given renal fx on admission Continue IV rocephin and oral doxycycline for superimposed bacterial infection due to elevated procalcitonin Completed 7-day course of Ceftri + Doxy Once creatinine improves, He was starting on Remdesivir and completed the course Will discontinue Decadron since pt completed more than 10 days course pulmonary toilet with nebs, spirometry and flutter valve Currently on 4 L nasal cannula Continue to encourage patient for self proning Will get 2 step exercise tomorrow Constipation No BM since 11/01/2021 Patient declining oral laxatives Tapwater enema ordered: (+) BM improved (4) MARRY (acute kidney injury): Plan: Creatinine on admission 2.27 likely in setting of pre renal/dehydration due to poor po intake CT a/p: No left hydronephrosis. No urinary calculi. Absent right kidney. Received IV fluids Resolved (5) Elevated troponin: Plan: Mostly due to A. fib Denies any chest pain IV heparin drip transition to Eliquis Continue Eliquis Continue metoprolol 25 twice daily for rate controlled Continue Metoprolol and Eliquis (6) New onset a-fib: Plan: no prior hx ecg on admission and repeat reveal afib Rate control [id number] 3 (age, hx of HTN) Continue Eliquis. Checked the [facility] and it will be $47 for 30-day supply Cardiology on board Continue metoprolol tartrate 25 twice daily Follow up with cardiology outpatient (7) HTN (hypertension): Plan: Lisinopril held due to MARRY and low BP Continue Amlodipine at bedtime Continue monitor BP (8) Depression: Plan: continue zoloft Plan: DVT ppx:on Eliquis FULL CODE Admission and Anticipated Discharge Date Admission Date: October 25, 2021 Subjective Pt was seen and examined for follow-up for hypoxic respiratory failure due to COVID-19 pneumonia Lying in bed with no acute distress on 4L [place] oxygen Denies any chest pain, palpitation and SOB Review of Systems Review of Systems: All systems reviewed & are unremarkable except as noted in Subjective Physical Exam Physical Exam: General- No acute distress Head- atraumatic Eyes- PERRL, EOMI, ENT- oropharynx clear Neck- supple, no JVD Lungs- +diminished BS Heart- no murmur Abdomen- normal bowel sounds, soft, nontender Extremities- no calf tenderness Neuro- alert, oriented x 3; PERRL, EOMI; no facial palsy; no dysarthria Skin- warm & dry Results & Data Results & Data ([facility]) Vital Signs (Past 12 Hours) Vital Signs Temp Pulse Resp BP Pulse Ox 11/09/21 22:45 36.5 C 76 20 111/69 91 11/09/21 18:46 36.7 C 78 20 127/85 93 11/09/21 15:46 36.4 C L 74 20 111/74 93 11/09/21 12:42 36.3 C L 81 18 119/76 91
[2021-11-10] MEDS: SERTRALINE HCL 50 MG TABLET PO SCH (08:20)
[2021-11-10] MEDS: APIXABAN 5 MG TABLET PO SCH (08:20)
[2021-11-10] MEDS: METOPROLOL TARTRATE 25 MG TAB PO SCH (08:20)
[2021-11-10] MEDS: BENZONATATE 100 MG CAPSULE PO SCH (08:20)
--- NOTE | 2021-11-10 13:06 | Discharge Summary ---
Date of Service November 10, 2021 Admission HPI Per Admitting Provider This is a 76 yr old Bruneian speaking male who presents to ED 2/ to not feeling well. He saw Jackelineer 2 month ago and was fine. He came to hospital b/c he felt sick for several days. He has hx of HTN, HLD and depression.He complains of minimal cough. He denies SOB, VALENZUELA, chest pain, nausea, vomiting, abd pain. Overall appetite had been good, but since not feeling well appetite has been decreased. He denies any difficulty urinating, dysuria, increased freq/urg, melena, hematochezia. Denies smoking or alcohol use or illicit drugs. He lives alone. Pt is refusing bond runner and hx is difficult to obtain. Initally in ED pt was hypotensive and tachycardia. There was concern for Sepsis. He received IVF x 2L and broad spectrum antibiotics. He is requesting food and drink due to mouth being dry. His blood pressure and heart rate improved with fluid resuscitation. Lab work consistent with MARRY elevated BUN 48, creatinine 2.27, glucose 180, mag 2.5, troponin 0.097. SARS-CoV-2 was positive. He underwent CT abdomen pelvis which revealed an absent right kidney but no evidence of urologic obstruction resulting in MARRY. CT scan was consistent with groundglass opacities within the bilateral lower lungs with interlobular septal thickening of left lower lobe. His chest x-ray revealed interstitial thickening at the lung bases, left greater than right which could represent an interstitial process chronically or interstitial pneumonitis. He was requiring 4 L of oxygen to maintain 97% saturation in ED. Admission Exam Per Admitting Provider Constitutional: Thin, elderly, M,vitals as above, NAD, sitting up in bed, pleasant, conversing easily Head: Normocephalic, Atraumatic Eyes: PERRL, conjunctivae normal, anicteric sclerae ENMT: external ear and nose normal, oropharynx dry membranes Neck: trachea midline, no thyromegaly normal visual inspection Respiratory: normal respiratory effort, lungs clear to auscultation, diminished bs at bases, no wheeze, rales, rhonchi. Normal insp/exp effort, no accessory muscle use Cardiovascular: RRR, no murmur, no edema Vessels: no JVD or carotid bruit Chest: normal inspection of chest Abdomen: normal bowel sounds, soft, nontender, no hepatosplenomegaly Musculoskeletal: no cyanosis or clubbing, extremities motor strength 5/5 Skin: no rashes, warm and dry normal turgor Neurologic: PERRL, EOMI, accommodation nl, no face palsy, no dysarthria CN's II-XI intact bilaterally and moves all extremities Psychiatric: A+Ox3, euthymic affect Lymphatic: no cervical or axillary lymphadenopathy : deferred Principal Diagnosis SIRS (systemic inflammatory response syndrome): Hypoxia: Pneumonia due to COVID-19 virus: Constipation MARRY (acute kidney injury): Elevated troponin: New onset a-fib: HTN (hypertension): Discharge Exam General- No acute distress Head- atraumatic Eyes- PERRL, EOMI, ENT- oropharynx clear Neck- supple, no JVD Lungs- +diminished BS Heart- no murmur Abdomen- normal bowel sounds, soft, nontender Extremities- no calf tenderness Neuro- alert, oriented x 3; PERRL, EOMI; no facial palsy; no dysarthria Skin- warm & dry Discharge Data Allergies Allergy/AdvReac Type Severity Reaction Status Date / Time No Known Allergies Allergy Mild Unverified 06/20/21 20:58 Consultations 10/25/21 10:57 ED Decision to Admit Stat 10/25/21 12:51 Consult Cardiology Routine Ordered Studies 10/25/21 09:12 CT abd pelvis wo con Stat XR chest 1V portable HISTORY: weakness COMPARISON: None. FINDINGS: The heart is borderline enlarged. Interstitial thickening at the lung bases, left greater the right. No focal lung consolidations identified. No evidence for pulmonary edema. There is a mildly tortuous thoracic aorta. IMPRESSION: Interstitial thickening at the lung bases, left greater than right. This is nonspecific and may be due to a chronic interstitial process or an interstitial pneumonitis. ACT 112: Negative or not required by law. Electronically signed by: Krishan Mireles M.D. 10/25/2021 8:11 AM Dictated:10/25/21804 Transcribed: 10/25/21804 CT OF THE ABDOMEN AND PELVIS WITHOUT CONTRAST CLINICAL HISTORY: Renal failure. Evaluate for hydronephrosis. COMPARISON STUDY: CT of the abdomen and pelvis December 10, 2017. TECHNIQUE: Axial images of the abdomen and pelvis were obtained without IV con trast. Images were reviewed in the axial, sagittal, and coronal planes. Automated exposure control was utilized for the study. A dose lowering technique was utilized adhering to the principles of ALARA. FINDINGS: Mild cardiomegaly is noted. Note is made of interlobular septal thickening within the left lower lobe. There are moderate left lower lobe and mild right lower lobe ground glass opacities. There is minimal groundglass opacity within the lingula and right middle lobe. Evaluation of the abdomen and pelvis is suboptimal on this unenhanced examination. No pneumatosis, free air or portal venous gas is present. Water attenuation hepatic lesions measure up to 6.6 cm. These were shown to represent cysts on prior contrast enhanced CT. There is no biliary or pancreatic ductal dilatation. Gallstone within the gallbladder is noted. There is no evidence for acute cholecystitis. Unenhanced images of the spleen, adrenal glands and pancreas are unremarkable. Water attenuation left renal lesion was shown to reflect a cyst on prior contrast enhanced exam. There is no left hydronephrosis. There is trace left perinephric fluid. No urinary calculi are identified. Mild enlargement of the prostate is noted. Right kidney is absent. There is no evidence for a bowel obstruction. Sigmoid diverticulosis is noted without evidence for acute diverticulitis. There is no lymphadenopathy. No acute fracture or suspicious lesion is identified within visualized skeletal structures. IMPRESSION: 1. No left hydronephrosis. No urinary calculi. Absent right kidney. Mildly enlarged prostate. 2. Ground glass opacities within the lower lungs with interlobular septal thickening within the left lower lobe. The findings may reflect pulmonary edema or an infectious process. 3. No bowel obstruction. 4. Colonic diverticulosis without evidence for acute diverticulitis. 5. Cholelithiasis. ACT 112: Negative or not required by law. Electronically signed by: Neel Morfin M.D. 10/25/2021 10:08 AM Dictated:10/25/21 0958 Transcribed: 10/25/21 0959 XR chest 1V portable HISTORY: 76 years-old Male hypoxia acute hypoxia COMPARISON: Chest radiograph 10/25/2021 TECHNIQUE: Portable AP view the chest FINDINGS: Cardiac silhouette is enlarged. Interstitial coarsening with ill-defined mid to lower lung zone airspace opacities, slightly progressed from prior. No pneumothorax, large pleural effusion or overt pulmonary edema. Degenerative changes of the shoulders and spine. IMPRESSION: Mildly progressed mid to lower lung zone pulmonary opacities suggestive of multifocal pneumonia. ACT 112: Negative or not required by law. The above report was generated using voice recognition software. It may contain grammatical, syntax or spelling errors. Electronically signed by: Geoffrey Nguyễn M.D. 10/27/2021 8:50 PM Dictated:10/27/212048 Transcribed: 10/27/212048 XR chest 1V portable CLINICAL HISTORY: Follow-up bilateral interstitial and alveolar opacities. Covid positive. COMPARISON STUDY: 10/27/2021 TECHNIQUE: 1 view of the chest FINDINGS: Single frontal view of the chest demonstrates the cardiomediastinal silhouette to be within normal limits. Compared to previous examination, there has been slight worsening of bilateral interstitial and alveolar opacities characteristic of a viral type pneumonitis and Covid pneumonia. There is no evidence for pleural effusion. There is no evidence for vascular congestion. There is no acute osseous pathology. IMPRESSION: Slight interval worsening of bilateral interstitial and alveolar opacities characteristic of Covid pneumonia. ACT 112: Negative or not required by law. Electronically signed by: Yusuf Shearer M.D. 11/01/2021 10:06 AM Dictated:11/01/211003 Transcribed: 11/01/21 100 XR chest 1V portable HISTORY: 76 years-old Male ff up covid pneumonia acute shortness of breath with history of viral pneumonia COMPARISON: Chest radiograph 11/01/2021. TECHNIQUE: Portable AP view of the chest FINDINGS: Cardiac silhouette is enlarged. Calcified plaque of the thoracic aorta. No pneumothorax or large pleural effusion. Interstitial coarsening with bilateral airspace opacities, mildly progressed from prior. Degenerative changes of the shoulders and spine. IMPRESSION: Mildly progressed bilateral opacities compatible with viral pneumonia. ACT 112: Negative or not required by law. The above report was generated using voice recognition software. It may contain grammatical, syntax or spelling errors. Electronically signed by: Geoffrey Nguyễn M.D. 11/04/2021 9:26 AM Dictated:11/04/21922 Transcribed: 11/04/21922 Hospital Course (1) SIRS (systemic inflammatory response syndrome): (2) Hypoxia: (3) Pneumonia due to COVID-19 virus: Pt initially met SIRS criteria on admission 2/2 to hypotension and tachycardia Procalcitonin elevated on admission Lactic acid WNL, afebrile and WBC WNL Received cefepime in the ER Continue antibiotic with Rocephin and doxy Blood culture no growth Procalcitonin trending down at 0.69 Continue monitor closely 11/10 COVID -19 PNA Hypoxia Unvaccinated for COVID-19 CT showed ground glass opacities within the lower lungs with interlobular septal thickening within the left lower lobe. Repeat chest x-ray showed Mildly progressed mid to lower lung zone pulmonary opacities suggestive of multifocal pneumonia. Continue IV Dexamethasone 6mg daily He did not meet criteria for remdesivir given renal fx on admission Continue IV rocephin and oral doxycycline for superimposed bacterial infection due to elevated procalcitonin Completed 7-day course of Ceftri + Doxy Once creatinine improves, He was starting on Remdesivir and completed the course Will discontinue Decadron since pt completed more than 10 days course pulmonary toilet with nebs, spirometry and flutter valve Continue to encourage patient for self proning 2 step exercise done today and pt did not require any oxygen at rest or with ambulation Constipation No BM since 11/01/2021 Patient declining oral laxatives Tapwater enema ordered: (+) BM improved (4) MARRY (acute kidney injury): Creatinine on admission 2.27 likely in setting of pre renal/dehydration due to poor po intake CT a/p: No left hydronephrosis. No urinary calculi. Absent right kidney. Received IV fluids Resolved (5) Elevated troponin: Mostly due to A. fib Denies any chest pain IV heparin drip transition to Eliquis Continue Eliquis Continue metoprolol 25 twice daily for rate controlled Continue Metoprolol and Eliquis (6) New onset a-fib: no prior hx ecg on admission and repeat reveal afib Rate control [id number] 3 (age, hx of HTN) Continue Eliquis. Checked the chávez and it will be $47 for 30-day supply Cardiology on board Continue metoprolol tartrate 25 twice daily Follow up with cardiology outpatient Will need to arrange for outpatient echo in 3-4 weeks (7) HTN (hypertension): Lisinopril held due to MARRY and low BP Continue Amlodipine at bedtime Continue monitor BP (8) Depression: continue zoloft DVT ppx:on Eliquis FULL CODE Total Time Total Time Spent Total Time Spent (In Minutes): 35 minutes Discharge Plan Discharge Items Patient Disposition: Home - Self-Care Reason For Visit: COVID PNA Discharge Diagnosis: SIRS (systemic inflammatory response syndrome): Hypoxia: Pneumonia due to COVID-19 virus: Constipation MARRY (acute kidney injury): Elevated troponin: New onset a-fib: HTN (hypertension): Condition on Discharge: Fair Activity: Resume your previous activity Non-emergency contact: Primary Care Provider and Show Card Writer Call non-emergency contact if: you have any medication questions Follow-up/Referrals: Pasquale Trujillo PA-C [Primary Care Provider] - (Date & Time 11/13/2021 2:20 PM Provider Pasquale Trujillo PA-C Department General Internal Medicine [facility] ) Diet: Heart Healthy Addtl Attending Provider Instructions: Follow up with your primary care provider Pasquale DE LA CRUZ on 11/13/2021 @2:20 PM at the General Internal Medicine [facility] Follow up with cardiology outpatient You will need to get an echocardiogram in 3 to 4 weeks ( cardiology or your provider can arrange for it) Seek medical attention if you develop any shortness of breath or symptoms worsening Continue monitor your blood pressure ( Please bring your blood pressure log at your next appointment) Continue to wear mask and practice social distance Monitor for any abnormal bleeding while on Eliquis. Medication Instructions: Eliquis Your condition is typically treated with an anticoagulant. Anticoagulants will thin your blood to help prevent new clots. You should take her medication exactly as directed. Never skip a dose. Never take a double dose. If you miss a dose, take it as soon as you remember. Avoid NSAIDs (Motrin, Aleve, Naproxen, Ibuprofen, Advil, Meloxicam,..) due to risks of bleeding Call your Primary Care doctor if you experience any of the following: Swelling or Pain in your leg Sudden, continuous pain deep in a muscle Pain that worsens when you are active or when you stand still for a long time Chest Pain Sudden Shortness of Breath Rapid or pounding heart beat Fainting Dizziness Cough with blood or bloody sputum Sweating more than normal Bruises Heavy or uncontrolled bleeding Blood in your urine, stool or vomit Black or tarry stools Home Isolation COVID-19 Instructions The following information about Home Isolation is from the CDC Website: https://www.cdc.gov/coronavirus/2019-ncov/hcp/zbjilmwy-loleyiz-ivgdhg.html Stay home except to get medical care People who are mildly ill with COVID-19 are able to isolate at home during their illness. You should restrict activities outside your home, except for getting m edical care. Do not go to work, school, or public areas. Avoid using public transportation, ride-sharing, or taxis. Separate yourself from other people and animals in your home People: As much as possible, you should stay in a specific room and away from other people in your home. Also, you should use a separate bathroom, if available. Animals: You should restrict contact with pets and other animals while you are sick with COVID-19, just like you would around other people. Although there have not been reports of pets or other animals becoming sick with COVID-19, it is still recommended that people sick with COVID-19 limit contact with animals until more information is known about the virus. When possible, have another member of your household care for your animals while you are sick. If you are sick with COVID-19, avoid contact with your pet, including petting, snuggling, being kissed or licked, and sharing food. If you must care for your pet or be around animals while you are sick, wash your hands before and after you interact with pets and wear a face mask. Call ahead before visiting your doctor If you have a medical appointment, call the healthcare provider and tell them that you have or may have COVID-19. This will help the healthcare providers office take steps to keep other people from getting infected or exposed. Wear a face mask You should wear a face mask when you are around other people (e.g., sharing a room or vehicle) or pets and before you enter a healthcare providers office. If you are not able to wear a face mask (for example, because it causes trouble breathing), then people who live with you should not stay in the same room with you, or they should wear a face mask if they enter your room. Cover your coughs and sneezes Cover your mouth and nose with a tissue when you cough or sneeze. Throw used tissues in a lined trash can. Immediately wash your hands with soap and water for at least 20 seconds or, if soap and water are not available, clean your hands with an alcohol-based hand marketing summer intern that contains at least 60% alcohol. Clean your hands often Wash your hands often with soap and water for at least 20 seconds, especially after blowing your nose, coughing, or sneezing; going to the bathroom; and before eating or preparing food. If soap and water are not readily available, use an alcohol-based hand marketing summer intern with at least 60% alcohol, covering all surfaces of your hands and rubbing them together until they feel dry. Soap and water are the best option if hands are visibly dirty. Avoid touching your eyes, nose, and mouth with unwashed hands. Avoid sharing personal household items You should not share dishes, drinking glasses, cups, eating utensils, towels, or bedding with other people or pets in your home. After using these items, they should be washed thoroughly with soap and water. Clean all high-touch surfaces everyday High touch surfaces include counters, tabletops, doorknobs, bathroom fixtures, toilets, phones, keyboards, tablets, and bedside tables. Also, clean any surfaces that may have blood, stool, or body fluids on them. Use a household cleaning spray or wipe, according to the label instructions. Labels contain instructions for safe and effective use of the cleaning product including precautions you should take when applying the product, such as wearing gloves and making sure you have good ventilation during use of the product. Monitor your symptoms Seek prompt medical attention if your illness is worsening (e.g., difficulty breathing).Beforeseeking care, call your healthcare provider and tell them that you have, or are being evaluated for, COVID-19. Put on a face mask before you enter the facility. These steps will help the healthcare providers office to keep other people in the office or waiting room from getting infected or exposed. Ask your healthcare provider to call the local or state health department. Persons who are placed under active monitoring or facilitated self- monitoring should follow instructions provided by their local health department or occupational health professionals, as appropriate. When working with your [facility] health department check their available hours. If you have a medical emergency and need to call 911, notify the dispatch personnel that you have, or are being evaluated for COVID-19. If possible, put on a face mask before emergency medical services arrive. Discontinuing home isolation Patients with confirmed COVID-19 should remain under home isolation precautions until the risk of secondary transmission to others is thought to be low. The decision to discontinue home isolation precautions should be made on a [id number]-rb-[id number] basis, in consultation with healthcare providers and state and local health departments. Coronavirus disease 2019 (COVID-19) is a virus that causes a respiratory illness. It is caused by a coronavirus called 2019 novel coronavirus (2019- nCoV). There are many types of coronavirus. Coronaviruses are a very common cause of bronchitis. They may sometimes cause lung infection(pneumonia). Symptoms can range from mild to severe respiratory illness. These viruses are also foundin some animals. COVID-19 was first found in people in [facility], in late 2019. In 2020, several cases of COVID-19 have been confirmed in the [place] Public health officials are working to find the source. How the virus spreads is not yet fully known. It may be spread through droplets of fluid that a person coughs or sneezes into the air. It may be spread if you touch a surface with virus on it, such as a handle or object, and then touch your mouth. What are the symptoms of COVID-19? Some people have no symptoms or mild symptoms. Symptoms may appear 2 to 14 days after contact with the virus. Symptoms can include: Fever Coughing Trouble breathing What are possible complications from COVID-19? In many cases, this virus can cause infection (pneumonia) in both lungs. In some cases, this can cause . How is COVID-19 diagnosed? Your healthcare provider will ask about your symptoms. He or she will also ask about your recent travel and contact with sick people. Testing for the virus is only done through the CDC. If yourhealthcare provider thinks you may have COVID- 19, he or she will work with your local health department and the CDC on testing. Follow all instructions from your healthcare provider. COVID-19 is diagnosed by: Nasal and throat swab. A cotton-tipped swab is wiped inside your nose or throat. This is done to check for viruses in your nasal mucus. Sputum culture. A small sample of mucus coughed from your lungs (sputum) is collected if you have a cough. It is checked for the virus. How is COVID-19 treated? There is currently no medicine to treat the virus. Treatment is done to help your body while it fights the virus. This is known as supportive care. Supportive care may include: Pain medicine. These include acetaminophen and ibuprofen. They are used to help ease pain and reduce fever. Bed rest. This helps your body fight the illness. For severe illness, you may need to stay in the hospital. Care during severe illness may include: IV (intravenous) fluids.These are given through a vein to help keep your body hydrated. Oxygen. Supplemental oxygen or ventilation with a breathing machine (ventilator) may be given. This is done to keep enough oxygen in your body. Are you at risk for COVID-19? If youve been to a place where people have been sick with this virus, you are at risk for infection. You are at risk if you: Recently traveled to an affected area Had contact with a sick person who recently traveled to this area Had contact with a person who was diagnosed with COVID-19 How can COVID-19 be prevented? There is no vaccine yet. The best prevention is to not have contact with the virus. The CDC advises that people should not travel to areas where there are COVID-19 outbreaks right now for any reason that is not urgent. To help prevent spreading the infection, wash your hands often, or use an alcohol-basedhand marketing summer intern. If you are in an area with COVID-19: Wash your hands often. Or use an alcohol-based hand marketing summer intern often. Only touch your eyes, nose, or mouth with clean hands. Dont have contact with people who are sick. Follow local instructions about being in public. For example, you may be told to not use public transport for a period of time. Stay away from markets that have live or animals. Wash your hands after touching any animals. Don't touch animals that may be sick. Dont share eating or drinking tools with sick people. Dont kiss someone who is sick. Clean surfaces often with disinfectant. If you were in an area with COVID-19 in the last 14 days: Call your healthcare provider. He or she can talk with local health staff to see what action may be needed. Follow all instructions from your provider. Take your temperature every morning and evening for at least 14 days. This is to check for fever. Keep a record of the readings. Keep watch for symptoms of the virus. Tell your provider right away if you have symptoms. If you were in an area with COVID-19 and have a fever or other symptoms: Dont panic. Keep in mind that other illnesses can cause similar symptoms. Stay away from work, school, and public places. Limit physical contact with family members. Don't kiss anyone or share eating or drinking utensils. Clean surfaces you touch with disinfectant. This is to help prevent the virus from spreading. Call your healthcare provider. Explain that you have been exposed to COVID-19 and have symptoms. Do this before going to any hospital. Wait for instructions. Keep in mind that healthcare staff may wear protective equipment such as masks, gowns, gloves, and eye protection. You may be put in a separate room. This is to prevent the possible virus from spreading. Tell the healthcare staff about recent travel. This includes local travel on public transport. Staff may need to find other people you have been in contact with. Follow all instructions the healthcare staff give you. If you have been diagnosed with COVID-19 Follow all instructions from your healthcare provider. Dont leave your home, except to get medical care. Call your healthcare providers office before going. They can prepare and give you instructions. This will help prevent the virus from spreading. Dont go to work, school, or public areas. Dont use public transport or taxis. Stay away from other people in your home. Have them wear face masks around you. Dont share household items or food. Wear a face mask if you can. This includes at home or in a medical facility. Cover your face with a tissue when you cough or sneeze. Throw the tissue away. Wash your hands. Wash your hands often. Caregivers should: Follow all instructions from healthcare staff. Wear a face mask and protective clothing as advised. Wash hands often. Keep track of the sick persons symptoms. Clean surfaces, fabrics, and laundry thoroughly. Keep other people away from the sick person. When to call your healthcare provider Call your healthcare provider: If youve recently traveled and have symptoms If you have been diagnosed with COVID-19 and your symptoms are worse To learn more To find out more about COVID-19, visit the CDC website at www.cdc.gov/coronavirus/2019-ncov/index.html. [employer]. [address] [place] [address], [place] [address]. All rights reserved. This information is not intended as a substitute for professional medical care. Always follow your healthcare professional's instructions. This information has been adapted from [employer] Pending Studies at Discharge: No Stand-Alone Forms: [facility], Smoking Cessation Medications and DC Order Prescriptions: New Eliquis 5 mg tablet 5 mg PO BID Qty: 60 RF: 0 metoprolol tartrate 25 mg Tablet 25 mg PO BID Qty: 60 RF: 0 polyethylene glycol 3350 [Miralax] 17 gram Powder In Packet 17 g PO DAILY PRN (Reason: constipation) Qty: 30 RF: 0 Continued sertraline 50 mg tablet 50 mg PO QAM RF: 0 amlodipine [Norvasc] 10 mg tablet 10 mg PO HS Qty: 30 RF: 0 Discontinued lisinopril 40 mg tablet 40 mg PO DAILY@1800 RF: 0 Discharge Orders: Discharge Order (Routine); Ordered 11/10/21 Ordered By: Dung Blanchard Admission Data Admit Date/Time: 10/25/21 11:44 Attending Provider: Dung Blanchard Admit Provider: Yoana Galan I. Primary Care Provider: Pasquale Trujillo Other Providers: Yoana Galan I. ; Myron Hall Robin A. Other Interventions: Discharge Summary Assessment (RN) Last Done: 11/10/21 11:21
--- NOTE | 2021-11-25 09:12 | Coding Query ---
SEPSIS To promote full compliance with coding requirements relating to patient care, physician participation is requested in all cases of hand paint mixer uncertainty. Please assist us with the question(s) below: In responding to this query, please exercise your independent professional judgement. The fact that a question is asked does not imply that any particular answer is desired or expected. We appreciate your clarification on this issue. Throughout the medical record, you have clearly documented a localized infection and your patient has clinical evidence of a generalized sepsis or severe sepsis. The term urosepsis is a nonspecific entity and is coded as an UTI. If the patient has sepsis, severe sepsis, from an urinary source or some other source, please clarify in your response below. The medical record reflects the following clinical findings: Patient admitted with COVID Pneumonia, hypotension, tachycardia. Received broad spectrum antibiotics. MARRY suspected BUN 48 Creat 2.27 . Progress notes, DS documented SIRS. Seeking to clarify if Sepsis was treated . Procalcitronin 3.69 on admission. Thanks for your help. Marquise Sheehan [facility] ____ ( )Bacteremia (Nonspecific laboratory finding of bacteria in the blood) Specify Organism ( ) Present on Admission ( ) Not present on admission ( ) Unable to clinically determine ( ) Septicemia (Systemic disease associated with the presence of pathogenic microorganisms in the blood): Specify Organism ( ) Present on Admission ( ) Not present on admission ( ) Unable to clinically determine ( ) Sepsis Specify Organism Specify Associated Condition/Diagnosis ( x) Present on Admission ( ) Not present on admission ( ) Unable to clinically determine ( ) Severe Sepsis (Sepsis associated with acute organ dysfunction) Specify Organism Specify Associated Condition/Diagnosis ( ) Present on Admission ( ) Not present on admission ( ) Unable to clinically determine ( ) Septic Shock (Severe sepsis with acute circulatory failure, unexplained by other causes) ( ) Present on Admission ( ) Not present on admission ( ) Unable to clinically determine ( ) Other, patient has: MTDD
== END 2021-11-10 15:04 | disposition home or self-care (01) | DRG 871 ==
LOC: ED 06:52 → SUATTDRO 11:44 → EDINP 11:44 → 2W 19:24